=== PATIENT | male | born 1960 | race African-American/Black ===

== ENCOUNTER → 2018-04-13 11:12 | Outpatient (CLI) | payer BC, SELFPAY ==
[2018-04-13 14:55] LABS: Erythrocyte Sedimentation Rate 8 mm/hr (0-20)
[2018-04-13 14:56] LABS: Absolute Lymphocyte Count 0.98 X10^3/ul (0.83-4.51); Absolute Neutrophil Count 1.7 X10^3/uL (2.0-7.7); Basophil# 0.02 X10^3/uL; Basophil% 0.6 % (0-1); Eosinophil# 0.04 X10^3/uL; Eosinophils% 1.3 % (0-5); Hematocrit 39.7 % (40-54); Hemoglobin 13.4 g/dl (13.0-16.5); Lymphocyte # 0.98 X10^3/ul (4.0); Lymphocyte % 31.8 % (19-41); Mean Corp Hgb Conc 33.8 g/gl (32-36); Mean Corpuscular Hgb 28.7 pg (27.0-32.0); Monocyte% 9.7 % (0-10); Neutrophil # 1.74 X10^3/uL (2.7-7.7); Neutrophil % 56.6 % (47-70); Platelet Count 191 K/mm3 (150-450); RBC Distribution Width CV 13.3 % (11.6-14.6); RBC Distribution Width SD 40.9 fl (35.1-43.9); Red Blood Count 4.67 M/mm3 (4.6-6.2); White Blood Count 3.1 K/mm3 (4.4-11.0)
[2018-04-13 15:00] LABS: POSITIVE COUNT NO; POSITIVE DIFFERENTIAL NO; POSITIVE MORPHOLOGY NO
--- NOTE | 2018-04-13 15:05 | CT_ITS ---
STUDY: CT BRAIN WITHOUT CONTRAST REASON FOR EXAM: Male, 57 years old. Severe headaches. RADIATION DOSAGE (If Supplied By Facility): CTDIvol = ( 60.81 ) mGy, DLP = ( 1112.69 ) mGycm TECHNIQUE: Transaxial CT imaging of the brain was performed without administration of intravenous contrast material. Individualized dose optimization techniques were used for this CT. COMPARISON: None. FINDINGS: Normal soft tissue structures. Normal calvarium. Normal size ventricles and extra-axial spaces for the patient's age. Normal white matter tracts of the cerebral hemispheres. Normal basal ganglia and thalami. Normal brainstem. Normal cerebellum. There is no intracranial hemorrhage. There are no findings of an acute ischemic infarction. There is opacification of the left maxillary sinus as well as partial opacification of the left ethmoid sinus. There is fullness of the left nasal fossa. CT/Brain/Head without Contrast IMPRESSION: Opacification of the left maxillary sinus and partial opacification of the left ethmoid sinus. Electronically Signed: Edvin Thakur MD at 15:40 EST Tel [phone], Service support ,
[2018-04-13 15:13] LABS: ALB/GLOB Ratio 1.1 RATIO (0.9-2.4); AST(SGOT) 15 U/L (15-37); Alanine Aminotransfer ALT/SGPT 29 U/L (16-61); Alkaline Phosphatase 60 U/L (45-117); Anion Gap 10 (5-15); BUN 22 mg/dL (7-18); BUN/Creat Ratio 22.5 RATIO (10-20); CRP < 2.90 mg/L (0.0-3.0); Calcium,Total 8.8 mg/dL (8.5-10.1); Chloride 110 mmol/L (98-107); Creatinine, Serum 0.98 mg/dL (0.70-1.30); EST Glomerular Filtration Rate 84 mL/min (>60); Est Glom Filt Rate - Afr Amer 101 mL/min (>60); Globulin 3.6 g/dL (2.2-4.2); Glucose 79 mg/dL (74-106); Magnesium 2.1 mg/dL (1.6-2.6); Potassium 3.9 mmol/L (3.5-5.1); Protein, Total 7.6 g/dL (6.4-8.2); Sodium Level 143 mmol/L (136-145); Thyroid Stim Hormone (TSH) 1.17 uIU/mL (0.358-3.74)
[2018-04-15 14:20] LABS: ANTINUCLEAR ANTIBODIES DIRECT Negative (Negative)
[2018-04-15 23:53] LABS: Rapid Plasmin Reagin (RPR) NONREACTIVE (NONREACTIVE)
--- OUTSIDE RECORDS SUMMARY | 2018-07-15 20:00 | XMS RPT_ITS ---
:1960 Author Organization [facility] Care Team Providers Name Role Phone Juan Manuel Hernandez Attending Unavailable Juan Manuel Hernandez Primary Care Unavailable Juan Manuel Hernandez Referring Unavailable PROBLEMS PROBLEMS DATE TYPE CONDITION / CODE ATTENDING STATUS SOURCE 04/13/2018 Unknown R51 - Headache / Juan Manuel Hernandez Active [place] R51(ICD-10) [facility] Hospital Repository 04/13/2018 Unknown 784.0 - Headache Juan Manuel Hernandez Active [place] / 784.0(ICD-9) [facility] Repository PROCEDURES PROCEDURES No Procedure Records FoundRESULTS RESULTS BRAIN/HEAD WITHOUT Observed: 04/13/2018 Status: F Source: [place] CONTRAST 3:05 PM [facility] Imaging Services [address] [place] [address] Brain/Head without Contrast MR#: [id number] Acct: [id number] Name: NOLVIA ESCOBAR Rep #: [id number] : 1960 M 57 From: Edvin Thakur MD PCP: Juan Manuel Hernandez MD Status: REG CLI Study: Brain/Head without Contrast Date of Exam: 04/13/18 Exam# [id number] Ordering Dr: Juan Manuel Hernandez MD STUDY: CT BRAIN WITHOUT CONTRAST REASON FOR EXAM: Male, 57 years old. Severe headaches. RADIATION DOSAGE (If Supplied By Facility): CTDIvol = ( 60.81 ) mGy, DLP = ( 1112.69 ) mGycm TECHNIQUE: Transaxial CT imaging of the brain was performed without administration of intravenous contrast material. Individualized dose optimization techniques were used for this CT. COMPARISON: None. FINDINGS: Normal soft tissue structures. Normal calvarium. Normal size ventricles and extra-axial spaces for the patient's age. Normal white matter tracts of the cerebral hemispheres. Normal basal ganglia and thalami. Normal brainstem. Normal cerebellum. There is no intracranial hemorrhage. There are no findings of an acute ischemic infarction. There is opacification of the left maxillary sinus as well as partial opacification of the left ethmoid sinus. There is fullness of the left nasal fossa. CT/Brain/Head without Contrast IMPRESSION: Opacification of the left maxillary sinus and partial opacification of the left ethmoid sinus. Electronically Signed: Edvin Thakur MD at 15:40 EST Tel [phone], Service support , CC: Juan Manuel Hernandez MD Receiving Teller: Signed ERYTHROCYTE SED RATE Collected: 04/13/2018 Status: F Source: [place] 11:16 AM [facility] TYPE CODE TESTS RESULT OUT OF RANGE REFERENCE UNITS LAB L102.0000 0-20 mm/hr Normal SED RATE 8 Performed By: #### L101.9900, L100.0100, L500.4050, L501.5200, L501.9520 #### [facility] [address] [place] [address], [address] #### L3100.5475 #### [facility] (refer to report for specific site) refer to report for address and phone number CBC W/DIFF, AUTOMATED Collected: 04/13/2018 Status: F Source: [place] 11:16 AM [facility] TYPE CODE TESTS RESULT OUT OF RANGE REFERENCE UNITS LAB L100.1000 4.4-11.0 K/mm3 Low WBC 3.1 LAB L100.1200 4.6-6.2 M/mm3 Normal RBC 4.67 LAB L100.1300 13.0-16.5 g/dl Normal HGB 13.4 LAB L100.1400 40-54 % Low HCT 39.7 LAB L100.1500 80-94 fL Normal MCV 85.0 LAB L100.1600 27.0-32.0 pg Normal MCH 28.7 LAB L100.1700 32-36 g/gl Normal MCHC 33.8 LAB L100.1810 11.6-14.6 % Normal RDW CV 13.3 LAB L100.1820 35.1-43.9 fl Normal RDW SD 40.9 LAB L100.1900 150-450 K/mm3 Normal PLT 191 LAB L100.2000 6.2-12.0 fl Normal MPV 10.0 LAB L100.2100 47-70 % Normal NEUT% 56.6 LAB L100.2200 19-41 % Normal LY% 31.8 LAB L100.2300 0-10 % Normal MONO% 9.7 LAB L100.2400 0-5 % Normal EO% 1.3 LAB L100.2500 0-1 % Normal BASO% 0.6 LAB L100.2550 0.0-0.9 % Normal IM GRAN % 0.000 Result Comment: IG% - Immature Granulocytes (promyelocytes, myelocytes and metamyelocytes) > 1% indicates that a LEFT SHIFT is Present. LAB L100.2620 2.0-7.7 X10 3/uL Low Absolute Neut 1.7 LAB L100.2720 0.83-4.51 X10 3/ul Normal Absolute Lymph 0.98 Performed By: #### L101.9900, L100.0100, L500.4050, L501.5200, L501.9520 #### [facility] [address] [facility] [facility] [place], [place], [id number] #### L3100.5475 #### [facility] (refer to report for specific site) refer to report for address and phone number COMPREHENSIVE METABOLIC Collected: 04/13/2018 Status: F Source: [facility] 11:16 AM [facility] TYPE CODE TESTS RESULT OUT OF RANGE REFERENCE UNITS LAB L501.0100 74-106 mg/dL Normal GLU 79 Result Comment: Please note revised GLUCOSE reference range effective 2017. LAB L501.1000 7-18 mg/dL High BUN 22 LAB L501.1100 0.70-1.30 mg/dL Normal CREAT,SERUM 0.98 Result Comment: The validity of the calculated GFR AND GFRAA in patients over 70 years has not been determined. Clinical correlation is essential. LAB L501.1110 >60 mL/min Normal EST GFR 84 Result Comment: Non- GFR Calc LAB L501.1115 >60 mL/min Normal EST GFR - AA 101 Result Comment: GFR Calc LAB L501.1300 10-20 RATIO High BUN/CRE 22.5 LAB L501.1500 6.4-8.2 g/dL T Normal PROT 7.6 LAB L501.1800 3.2-5.0 g/dL Normal ALB 4.0 LAB L501.1950 2.2-4.2 g/dL Normal GLOB 3.6 LAB L501.2000 0.9-2.4 RATIO Normal A/G 1.1 LAB L501.2200 8.5-10.1 mg/dL CA Normal 8.8 LAB L501.4100 15-37 U/L Normal AST 15 LAB L501.4305 45-117 U/L Normal ALK P 60 LAB L501.4405 16-61 U/L Normal ALT 29 LAB L501.4600 0.20-1.00 mg/dL T Normal BILI 0.50 LAB L501.5300 136-145 mmol/L NA Normal 143 LAB L501.5600 3.5-5.1 mmol/L K Normal 3.9 LAB L501.5900 98-107 mmol/L High CL 110 LAB L501.6100 21.0-32.0 mmol/L Normal CO2 23.0 LAB L501.6200 5-15 Normal GAP 10 Performed By: #### L101.9900, L100.0100, L500.4050, L501.5200, L501.9520 #### [facility] [address] [place], [address] #### L3100.5475 #### [facility] (refer to report for specific site) refer to report for address and phone number MAGNESIUM Collected: 04/13/2018 Status: F Source: [place] 11:16 AM [facility] TYPE CODE TESTS RESULT OUT OF RANGE REFERENCE UNITS LAB L501.5200 1.6-2.6 mg/dL Normal MG 2.1 Performed By: #### L101.9900, L100.0100, L500.4050, L501.5200, L501.9520 #### [facility] [place], [address] #### L3100.5475 #### [facility] (refer to report for specific site) refer to report for address and phone number THYROID STIM HORMONE Collected: 04/13/2018 Status: F Source: [place] (TSH) 11:16 AM [facility] TYPE CODE TESTS RESULT OUT OF RANGE REFERENCE UNITS LAB L501.9520 0.358-3.74 uIU/mL Normal TSH 1.17 Performed By: #### L101.9900, L100.0100, L500.4050, L501.5200, L501.9520 #### [facility] [address] [place] [address], [address] #### L3100.5475 #### [facility] (refer to report for specific site) refer to report for address and phone number ANTINUCLEAR ANTIBODIES Collected: 04/13/2018 Status: F Source: [place] DIRECT 11:16 AM [facility] TYPE CODE TESTS RESULT OUT OF RANGE REFERENCE UNITS LAB L3100.5475 Negative Normal Negative NELDA-DIRECT Result Comment: Performed at: - [facility] [address] [id number] [employer]iller [employer] Reamer: Charles Catalan PhD, Phone: [phone] Performed By: #### L101.9900, L100.0100, L500.4050, L501.5200, L501.9520 #### [facility] [address] [place] [address], [address] #### L3100.5475 #### [facility] (refer to report for specific site) refer to report for address and phone number CRP Collected: 04/13/2018 Status: F Source: [place] 11:16 AM [facility] TYPE CODE TESTS RESULT OUT OF RANGE REFERENCE UNITS LAB L501.6710 0.0-3.0 mg/L Normal < 2.90 C-REACTIVE PROT Result Comment: C-Reactive Protein (CRP) provides useful information for the diagnosis, therapy and monitoring of inflammatory processes and associated diseases. For the evaluation of Relative Risk for Cardiovascular Disease, a High Sensitivity CRP (HSCRP) should be ordered. Performed By: #### L501.6710 #### [facility] [address] [place], [address] RAPID PLASMIN REAGIN Collected: 04/13/2018 Status: F Source: [place] (RPR) 11:16 AM [facility] TYPE CODE TESTS RESULT OUT OF REFERENCE UNITS RANGE LAB L700.5000 NONREACTIVE NONREACTIVE Normal RPR Performed By: #### L700.5000 #### [facility] [address] [place], [address] ALLERGIES ALLERGIES DATE TYPE / CODE NAME / CODE REACTION SEVERITY SOURCE 12/24/2015 Drug No Known Unknown [facility] Allergy/4160 Allergies/F00 Hospital [address](SNOMED [id number](RXNOR Repository CT) M) ENCOUNTERS ENCOUNTERS ADMIT/DISCHARGE ACCOUNT ADMITTING ENCOUNTER LOCATION SOURCE NUMBER CLASS 04/13/2018 [id number] Ambulatory [facility] ing:CT Repository PAYERS PAYERS ENCOUNTER GUARANTOR PAYER SUBSCRIBER SOURCE 04/13/2018 NOLVIA Griffin Primary NOLVIA [place] [address] Insurance:ANTHEMPolic LUZB: [place] Number: [id number] Hospital [address]38[address]Wxa: (220) [id number] Repository [phone] () leslye Date:[id number] [id number] [place] [address]DG: 04/13/2018 Secondary NOT GIVENUNK [place] Insurance:SELF PAY [facility] Number: Effective Repository Date:2018-04-13
== END ==
PROVIDERS: Family Provider Family Medicine; PCP Family Medicine; Referring Provider Family Medicine; Visit Provider Family Medicine
DX: R51 Headache (principal)
CPT/HCPCS: 36415; 70450; 80053; 83735; 84443; 85025; 85652; 86038; 86140; 86592

== ENCOUNTER → 2018-08-11 09:27 | Outpatient (CLI) | payer BC, SELFPAY ==
[2015-12-24 17:36] VITALS: BMI 26.4
[2018-08-11 10:42] LABS: Anion Gap 6 (5-15); BUN 12 mg/dL (7-18); BUN/Creat Ratio 14.2 RATIO (10-20); Calcium,Total 8.6 mg/dL (8.5-10.1); Chloride 104 mmol/L (98-107); Creatinine, Serum 0.84 mg/dL (0.70-1.30); EST Glomerular Filtration Rate 99 mL/min (>60); Est Glom Filt Rate - Afr Amer 120 mL/min (>60); Glucose 83 mg/dL (74-106); Magnesium 2.3 mg/dL (1.6-2.6); Potassium 4.1 mmol/L (3.5-5.1); Sodium Level 139 mmol/L (136-145)
== END ==
PROVIDERS: Nurse Practitioner Family; Family Provider Family Medicine; PCP Family Medicine; Referring Provider Family Medicine; Visit Provider Family Medicine
DX: M79.606 Pain in leg, unspecified (principal)
CPT/HCPCS: 36415; 80048; 83735

== ENCOUNTER → 2019-02-15 12:13 | Outpatient (CLI) | payer BC, SELFPAY ==
[2015-12-24 17:36] VITALS: BMI 26.4
[2019-02-15 15:54] LABS: Albumin, Serum 3.9 g/dL (3.2-5.0); BUN 13 mg/dL (7-18); BUN/Creat Ratio 12.3 RATIO (10-20); Calcium,Total 8.5 mg/dL (8.5-10.1); Chloride 110 mmol/L (98-107); Cholesterol 220 mg/dL (200); Creatinine, Serum 1.06 mg/dL (0.70-1.30); EST Glomerular Filtration Rate 76 mL/min (>60); Est Glom Filt Rate - Afr Amer 92 mL/min (>60); Glucose 82 mg/dL (74-106); High Density Lipoprotein 60 mg/dL; Magnesium 2.3 mg/dL (1.6-2.6); PSA,Total - Annual Screen 0.75 ng/mL (0.00-4.00); Phosphorus 2.6 mg/dL (2.5-4.9); Potassium 3.8 mmol/L (3.5-5.1); Sodium Level 141 mmol/L (136-145); Triglycerides 220 mg/dL; Very Low Density Lipoprotein 44 mg/dL (5-40)
[2019-02-15 17:18] LABS: HIV - WCH Non-Reactive (Nonreactive)
[2019-02-17 20:07] LABS: QNTFERON TB Mitogen Value > 10.00 IU/mL (.); QNTFERON TB Nil Value 0.02 IU/mL (.); QNTFERON TB1+ Ag Value 0.02 IU/mL (.); QNTFERON TB2+ Ag Value 0.02 IU/mL (.)
[2019-02-17 21:17] LABS: QNTIFERON TB Positive Criteria Negative (Negative)
== END ==
PROVIDERS: Family Provider Family Medicine; PCP Family Medicine; Referring Provider Family Medicine; Visit Provider Family Medicine
DX: Z00.00 Encounter for general adult medical examination without abnormal findings (principal); R61 Generalized hyperhidrosis; R25.2 Cramp and spasm
CPT/HCPCS: 36415; 80061; 80069; 83735; 84153; 86480; 86703; G0103

== ENCOUNTER → 2019-07-07 14:50 | Outpatient (CLI) | payer BC, SELFPAY ==
[2015-12-24 17:36] VITALS: BMI 26.4
[2019-07-07 15:36] LABS: Anion Gap 4 (5-15); BUN 12 mg/dL (7-18); BUN/Creat Ratio 13.4 RATIO (10-20); Chloride 109 mmol/L (98-107); Creatinine, Serum 0.89 mg/dL (0.70-1.30); EST Glomerular Filtration Rate 92 mL/min (>60); Est Glom Filt Rate - Afr Amer 112 mL/min (>60); Glucose 107 mg/dL (74-106); Sodium Level 142 mmol/L (136-145)
[2019-07-07 15:50] LABS: D-Dimer Quantitative (DVT/PE) 0.78 FEU/ug/m (0.27-0.49)
== END ==
PROVIDERS: PCP Family Medicine; Referring Provider Family Medicine; Visit Provider Family Medicine
DX: R25.2 Cramp and spasm (principal); Z86.711 Personal history of pulmonary embolism
CPT/HCPCS: 36415; 80048; 85379

== ENCOUNTER → 2019-07-08 08:52 | Outpatient (CLI) | payer BC, SELFPAY ==
--- NOTE | 2019-07-08 09:07 | VDLE_ITS ---
Reason For Study: Hx of PE, Elevated D-dimer, Leg Pain RIGHT LEFT GSV is normal. GSV is normal. CFV is compressible, spontaneous, phasic, CFV is compressible, spontaneous, phasic, competent and demonstrates normal competent, and demonstrates normal augmentation. augmentation. FV is compressible, spontaneous, phasic, FV is compressible, spontaneous, phasic, competent and demonstrates normal competent and demonstrates normal augmentation. augmentation. POP V is compressible, spontaneous, phasic, POP V is compressible, spontaneous, phasic, competent and demonstrates normal competent and demonstrates normal augmentation. augmentation. T/P Trunk is compressible. T/P Trunk is compressible. PTV is compressible. PTV is compressible. RT PerV is compressible. LT PerV is compressible. Procedure Exam performed in department. A preliminary report was called and/or faxed to Dr. Hernandez. Interpretation Summary Deep veins of the lower extremities are bilaterally patent and compressible segmentally. There is no evidence of deep vein thrombosis on either side. Valvular competence appears intact within the proximal deep venous systems bilaterally. The great saphenous veins appear bilaterally patent and compressible segmentally. Ordering Physician: Juan Manuel Hernandez Referring Physician: Juan Manuel Hernandez Performed By: Leah Baer, ZULEIKA, RVT
== END ==
LOC: CVS 08:53
PROVIDERS: PCP Family Medicine; Referring Provider Family Medicine; Visit Provider Family Medicine
DX: R79.89 Other specified abnormal findings of blood chemistry (principal); Z86.711 Personal history of pulmonary embolism; M79.604 Pain in right leg; M79.605 Pain in left leg
CPT/HCPCS: 93970

== ENCOUNTER → 2019-11-18 11:01 | Outpatient (CLI) | payer BC, SELFPAY ==
[2019-11-18 10:47] VITALS: BMI 26.1
--- NOTE | 2019-11-18 11:01 | RAD_ITS ---
STUDY: X-RAY - RIGHT SHOULDER REASON FOR EXAM: Male, 59 years old. OLD INJURY, PAIN GETTING WORSE RECENTLY TECHNIQUE: 3 view(s) of the shoulder. COMPARISON: None. FINDINGS: Normal glenohumeral articulation. Normal acromioclavicular joint. Normal acromion. Normal humeral head and visualized proximal humerus. The soft tissue structures are unremarkable. Normal visualized pulmonary apex. RAD/Shoulder min 2 Views IMPRESSION: Normal x-ray examination of the shoulder. Electronically Signed: Panchito Diaz MD at 12:10 EDT , Service support ,
== END ==
LOC: HPRAD 11:01
PROVIDERS: PCP Family Medicine; Referring Provider Orthopaedic Surgery; Visit Provider Orthopaedic Surgery
DX: M25.511 Pain in right shoulder (principal)
CPT/HCPCS: 73030

== ENCOUNTER → 2019-12-02 11:17 | Outpatient (CLI) | payer BC, SELFPAY ==
[2019-11-18 11:17] VITALS: BMI 26.4
--- NOTE | 2019-12-02 11:43 | MRI_ITS ---
STUDY: MR RIGHT SHOULDER ARTHROGRAPHY REASON FOR EXAM: Right shoulder clicking and decreased range of motion for 2 years, rotator cuff repair in 1994 or 1995, evaluate for SLAP lesion. TECHNIQUE: Standardized fat and water weighted pulse sequences were obtained in all 3 orthogonal planes after intra-articular instillation of 0.8 mL of dilute Dotarem. COMPARISON: Radiographs 11/18/2019. FINDINGS: There is mild supraspinatus and infraspinatus tendinosis (T2 sagittal image 7) without intravasation of contrast to indicate tendon tear. There is mild iatrogenic contrast in the subscapularis tendon. Normal teres minor tendon. Normal supraspinatus muscle. Normal infraspinatus muscle. Normal subscapularis muscle. Normal teres minor muscle. Normal glenohumeral articulation. There are small cysts in the greater tuberosity. There is mild fraying of the superior labrum (T1 coronal image 13) without discrete labral tear. There is mild tendinosis of the intracapsular long biceps tendon (T2 sagittal images 12, 13). Normal capsulo- ligamentous complex. Normal rotator interval. There is acromioclavicular arthrosis without substantial undersurface osteophytes (T2 sagittal image 12). There is a Type II morphology (curved), with a neutral orientation. There is no subacromial-subdeltoid bursal fluid. Normal visualized coracohumeral and coracoacromial ligaments. There is mild iatrogenic edema in the proximal anterior deltoid muscle. Normal trapezius muscle. MRI/Upper Ext Jt W/Contrast IMPRESSION: Mild supraspinatus and infraspinatus tendinosis without demonstrated rotator cuff tear. Mild tendinosis of the long biceps tendon. Mild fraying of the superior labrum without discrete superior labral tear. Acromioclavicular arthrosis. Electronically Signed: Roverto Perry MD at 13:38 EDT Tel , Service support ,
--- NOTE | 2019-12-02 11:45 | RAD_ITS ---
CLINICAL HISTORY: Male, 59 years old. Right shoulder pain. Prior surgery. PROCEDURE: ARTHROGRAM - RIGHT SHOULDER CONSENT: The procedure as well as the benefits and possible complications including bleeding and infection were explained to the patient. Informed consent was obtained. FLUOROSCOPY TIME (if supplied): (41 seconds) minutes/seconds Injection Information: 10 cc of dilute MRI contrast Number of images obtained: 4 TECHNIQUE: (All elements of maximal sterile barrier technique followed, including US elements as applicable) The overlying skin was prepped and draped in the usual sterile fashion. Following local anesthetic application and under direct fluoroscopic guidance, a 22-gauge spinal needle was placed into the shoulder joint. 2 cc of ISOVUE-300 was injected for confirmation. From this, 10 cc of dilute MRI contrast was injected. The patient tolerated the procedure well. RAD/Arthrogram Shoulder w/ MRI IMPRESSION: Successful right shoulder arthrogram for MRI examination. The patient tolerated the procedure well. Electronically Signed: Edvin Thakur, at 13:18 EDT , Service support ,
== END ==
LOC: RAD 11:18
PROVIDERS: PCP Family Medicine; Referring Provider Orthopaedic Surgery; Visit Provider Orthopaedic Surgery
DX: S43.431A Superior glenoid labrum lesion of right shoulder, initial encounter (principal)
CPT/HCPCS: 23350; 73222; 77002; A9575; Q9967

== ENCOUNTER → 2020-04-25 09:23 | Outpatient (CLI) | payer BC, SELFPAY ==
[2019-12-14 07:56] VITALS: BMI 26.4
[2020-04-25 10:59] LABS: Absolute Lymphocyte Count 0.81 X10^3/uL (0.83-4.51); Absolute Neutrophil Count 2.2 X10^3/uL (2.0-7.7); Basophil# 0.01 X10^3/uL; Basophil% 0.3 % (0-1); Eosinophil# 0.07 X10^3/uL; Eosinophils% 1.9 % (0-5); Hematocrit 38.4 % (40-54); Hemoglobin 13.2 g/dL (13.0-16.5); Lymphocyte # 0.81 X10^3/ul (4.0); Lymphocyte % 22.4 % (19-41); Mean Corp Hgb Conc 34.4 g/dL (32-36); Mean Corpuscular Hgb 31.1 pg (27.0-32.0); Mean Corpuscular Volume 90.6 fL (80-94); Mean Platelet Vol. 10.2 fl (6.2-12.0); Monocyte# 0.48 X10^3/uL; Monocyte% 13.3 % (0-10); NRBC Flagged by Analyzer 0 % (0-5); Neutrophil # 2.23 X10^3/uL (2.7-7.7); Neutrophil % 61.8 % (47-70); Platelet Count 180 K/mm3 (150-450); RBC Distribution Width CV 13.3 % (11.6-14.6); RBC Distribution Width SD 43.3 fl (35.1-43.9); Red Blood Count 4.24 M/mm3 (4.6-6.2); White Blood Count 3.6 K/mm3 (4.4-11.0)
[2020-04-25 11:09] LABS: ALB/GLOB Ratio 1.1 RATIO (0.9-2.4); AST(SGOT) 16 U/L (15-37); Alanine Aminotransfer ALT/SGPT 50 U/L (16-61); Albumin, Serum 3.9 g/dL (3.2-5.0); Alkaline Phosphatase 73 U/L (45-117); Anion Gap 5 (5-15); BUN 17 mg/dL (7-18); BUN/Creat Ratio 18.8 RATIO (10-20); Calcium,Total 8.9 mg/dL (8.5-10.1); Chloride 108 mmol/L (98-107); Cholesterol 271 mg/dL (200); EST Glomerular Filtration Rate 91 mL/min (>60); Est Glom Filt Rate - Afr Amer 110 mL/min (>60); Globulin 3.5 g/dL (2.2-4.2); Glucose 77 mg/dL (74-106); High Density Lipoprotein 60 mg/dL; Potassium 3.8 mmol/L (3.5-5.1); Protein, Total 7.4 g/dL (6.4-8.2); Sodium Level 140 mmol/L (136-145); Thyroid Stim Hormone (TSH) 1.36 uIU/mL (0.358-3.74)
[2020-04-30 08:06] LABS: LDL, Direct 120295 191 mg/dL (0-99); Testosterone, % Free 3.19 % (1.50-4.20); Testosterone, Free 15.02 ng/dL (5.00-21.00)
[2020-04-30 12:56] LABS: Testosterone, Total 471 ng/dL (264-916)
== END ==
PROVIDERS: PCP Family Medicine; Visit Provider Family Medicine
DX: N52.9 Male erectile dysfunction, unspecified (principal); G44.019 Episodic cluster headache, not intractable; Z53.20 Procedure and treatment not carried out because of patient's decision for unspecified reasons
CPT/HCPCS: 36415; 80053; 82465; 83718; 83721; 84402; 84403; 84443; 85025

== ENCOUNTER 2020-11-01 20:48 | Emergency (ER) | payer BC, SELFPAY ==
[2019-12-14 07:56] VITALS: BMI 26.4
[2020-11-01 20:48] VITALS: BP 123/77; PULSE 73; RESP 16; TEMP 36.4; O2SAT 100; BMI 26.4
--- NOTE | 2020-11-01 21:59 | RAD_ITS ---
STUDY: X-RAY - LEFT HAND REASON FOR EXAM: Male, 60 years old. pain at base of thumb/1st metacarpal after smashing thumb in door tonight TECHNIQUE: 3 view(s) of the hand. COMPARISON: None. FINDINGS: Mild demineralization of the osseous structures. A small cortical spur is present at the base of the distal phalanx of the thumb. No visualized acute fractures. Radiocarpal articulation. Normal distal radioulnar joint. Normal visualized carpal bones. Normal carpal articulations Normal carpometacarpal articulation of the thumb. Normal second through fifth carpometacarpal joints. Normal metacarpi. Normal metacarpophalangeal joint of the thumb. Normal interphalangeal joint of the thumb. Normal proximal and distal phalanges of the thumb. Normal metacarpophalangeal joints of the second through fifth fingers. Normal proximal and distal interphalangeal joints of the second through fifth fingers. Normal phalanges of the second through fifth fingers. The soft tissue structures are unremarkable. RAD/Hand Min 3 Views IMPRESSION: 1. Mild demineralization of the osseous structures. A small cortical spur is present at the base of the distal phalanx of the thumb. No visualized acute fractures. Electronically Signed: Enrique Baird MD at 22:59 EDT , Service support ,
--- NOTE | 2020-11-01 23:53 | EDS_ITS ---
HPI History of Present Illness HPI Narrative: Patient presents with injury to his left thumb that occurred earlier today. Patient states he got closed in a door. Patient describes pain as throbbing. Patient states the pain is worse with movement. Patient mitts to some tingling in the tip of his thumb. Patient states this is improving. Patient denies any radiation of the pain. Patient denies any other injuries. Chief Complaint: Upper Extremity Injury Informant: patient Occured/Mechanism Mechanism/Context: Yes blunt trauma Onset/Context/Timing Onset: Today Context: Sudden Onset Timing: Continuous Quality of Pain: Throbbing Worsened by: Movement Relieved by: Nothing Associated Symptoms Associated Symptoms: Positive for Parasthesia; Negative for Weakness and Loss of Funtion [facility] Medical History (Updated 11/01/20 @ 23:[address] 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 Home Medications rivaroxaban 20 mg PO DAILY #30 tab 11/15/15 [Rx Last Taken 12/24/15] celecoxib 200 mg capsule 200 mg PO PRN cap 11/18/19 [History Last Taken Unknown] fluticasone propionate 50 mcg/actuation nasal spray,suspension INTRANASAL 11/18/19 [History Last Taken Unknown] indomethacin 25 mg capsule 25 mg PO Q8H cap 11/18/19 [History Last Taken Unknown] magnesium oxide 400 mg (241.3 mg magnesium) tablet ea PO 11/18/19 [History Last Taken Unknown] nifedipine 30 mg tablet,extended release PO 11/18/19 [History Last Taken Unknown] nortriptyline 25 mg capsule ea PO 11/18/19 [History Last Taken Unknown] promethazine 12.5 mg tablet PO 11/18/19 [History Last Taken Unknown] tizanidine 4 mg tablet ea PO 11/18/19 [History Last Taken Unknown] Allergy/AdvReac Type Severity Reaction Status Date / Time No Known Allergies Allergy Verified 11/01/20 20:50 Family History Mother Diabetes Surgical History History of rotator cuff surgery Social History Smoking Status: Never smoker ROS ROS ED Constitutional Constitutional ED: Denies chills or fever(s) Eyes Eyes: Denies blurry vision or change in vision ENT ENT ED: Denies rhinorrhea or sore throat Cardiovascular Cardiovascular: Denies chest pain or palpitations Respiratory/Chest Respiratory/Chest: Denies cough or dyspnea Gastrointestinal Gastrointestinal: Denies nausea or vomiting Genitourinary Genitourinary ED: Denies dysuria or hematuria Musculoskeletal Musculoskeletal: Denies back pain or neck pain Integumentary Denies abscess or rash Neurologic Neurologic: Denies headache(s) or weakness Allergic/Immunologic Allergic/Immunologic ED: Denies mouth swelling or urticaria EXAM Physical Exam Const Vital Signs: 11/01/20 20:48 Temperature 97.5 F L Temperature Source Temporal Pulse Rate 73 Respiratory Rate 16 Blood Pressure 123/77 H Blood Pressure Mean 92 Pulse Ox 100 Oxygen Delivery Method Room Air Positive well nourished and well developed General Appearance ED: well developed HEENT Reports moist mucous membranes Neck full ROM Extremity Left Upper Extremity: hand and digits inspection (There is some mild edema. There is no ecchymosis noted. There is no obvious deformity.), palpation (There is tenderness to palpation over the distal and proximal phalanges of the left thumb.), ROM (Range of motion was limited and flexion of the IP joint and MP joint of the left thumb secondary to pain.), neurovascular exam (Sensation was intact to light touch in all digits. Capillary refill was less than 2 seconds in all digits.) and tendon exam (Strength is 5/5 in flexion and extension of the IP and MP joints of the left thumb.) Neuro oriented x3, CN's II-XII intact bilaterally, moves all extremities, no focal motor deficits and no sensory deficits noted Sensorium / Orientation: alert Psych mental status grossly normal MDM MDM MDM Narrative Medical decision making narrative: X-rays of the left hand were obtained. There are 3 views. On my interpretation, there is no acute fracture. There is no dislocation. There is no soft tissue swelling. Radiologist also interpreted the x-rays and agrees. Patient was advised of the findings. Patient was instructed to ice and elevate the left hand. Patient was instructed to follow- up with his primary care physician in 5 to 7 days. Patient understood and was agreeable with the plan. All questions were answered. Radiography Diagnostic Testing: Radiology Impression Hand X-Ray 11/01/20 21:59 IMPRESSION: 1. Mild demineralization of the osseous structures. A small cortical spur is present at the base of the distal phalanx of the thumb. No visualized acute fractures. Electronically Signed: Enrique Baird MD at 22:59 EDT , Service support , Discharge Plan Triage Chief Complaint: Upper Extremity Injury ED Provider: Juan Manuel Rodriguez Dx/Rx/DC Orders Clinical Impression: Contusion of left thumb Instructions: ED Finger Contusion Prescriptions: No Action indomethacin 25 mg capsule 25 mg PO Q8H RF: 0 tizanidine 4 mg tablet PO RF: 0 magnesium oxide 400 mg (241.3 mg magnesium) tablet PO RF: 0 fluticasone propionate 50 mcg/actuation spray,suspension INTRANASAL RF: 0 nortriptyline 25 mg capsule PO RF: 0 nifedipine 30 mg tablet extended release PO RF: 0 promethazine 12.5 mg tablet PO RF: 0 celecoxib 200 mg capsule 200 mg PO PRNRF: 0 rivaroxaban 20 MG tablet 20 mg PO DAILY Qty: 30 RF: 2 Primary Care Provider: Juan Manuel Hernandez Referrals: Juan Manuel Hernandez MD [Primary Care Provider] - 3-5 Days Disposition Disposition: Home, Self Care
[2020-11-02 00:01] VITALS: RESP 16
== END 2020-11-02 00:01 | disposition home or self-care (01) ==
PROVIDERS: Emergency Provider Emergency Medicine; PCP Family Medicine
DX: S60.012A Contusion of left thumb without damage to nail, initial encounter (principal); X58.XXXA Exposure to other specified factors, initial encounter
CPT/HCPCS: 73130; 99282

== ENCOUNTER → 2021-01-31 16:47 | Outpatient (CLI) | payer BC, SELFPAY ==
[2021-01-31 18:04] LABS: Absolute Lymphocyte Count 0.74 X10^3/uL (0.83-4.51); Absolute Neutrophil Count 3.1 X10^3/uL (2.0-7.7); Basophil# 0.02 X10^3/uL; Basophil% 0.5 % (0-1); Eosinophil# 0.08 X10^3/uL; Eosinophils% 1.8 % (0-5); Hematocrit 40.2 % (40-54); Lymphocyte # 0.74 X10^3/ul (0.83-4.51); Lymphocyte % 16.8 % (19-41); Mean Corp Hgb Conc 32.3 g/dL (32-36); Mean Corpuscular Hgb 28.3 pg (27.0-32.0); Mean Corpuscular Volume 87.6 fL (80-94); Mean Platelet Vol. 9.9 fl (6.2-12.0); Monocyte# 0.49 X10^3/uL; Monocyte% 11.1 % (0-10); NRBC Flagged by Analyzer 0 % (0-5); Neutrophil # 3.06 X10^3/uL (2.7-7.7); Neutrophil % 69.6 % (47-70); Platelet Count 247 K/mm3 (150-450); RBC Distribution Width SD 41.3 fl (35.1-43.9); Red Blood Count 4.59 M/mm3 (4.6-6.2); White Blood Count 4.4 K/mm3 (4.4-11.0)
[2021-01-31 18:26] LABS: Hemoglobin A1c 5.8 % (3.8-5.6)
[2021-01-31 18:38] LABS: ALB/GLOB Ratio 1.1 RATIO (0.9-2.4); AST(SGOT) 14 U/L (15-37); Alanine Aminotransfer ALT/SGPT 28 U/L (16-61); Alkaline Phosphatase 89 U/L (45-117); Anion Gap 4 (5-15); BUN 12 mg/dL (7-18); BUN/Creat Ratio 14.2 RATIO (10-20); Calcium,Total 9.4 mg/dL (8.5-10.1); Chloride 107 mmol/L (98-107); Creatinine, Serum 0.84 mg/dL (0.70-1.30); EST Glomerular Filtration Rate 98 mL/min (>60); Est Glom Filt Rate - Afr Amer 119 mL/min (>60); Globulin 3.7 g/dL (2.2-4.2); Glucose 92 mg/dL (74-106); Potassium 4.8 mmol/L (3.5-5.1); Protein, Total 7.7 g/dL (6.4-8.2); Sodium Level 140 mmol/L (136-145)
== END ==
PROVIDERS: PCP Family Medicine; Referring Provider Family Medicine; Visit Provider Family Medicine
DX: R25.2 Cramp and spasm (principal); G44.019 Episodic cluster headache, not intractable
CPT/HCPCS: 36415; 80053; 83036; 85025

== ENCOUNTER 2021-07-16 07:56 | Outpatient (CLI) | payer BC, SELFPAY ==
--- NOTE | 2021-07-16 08:00 | ECHOD_ITS ---
Reason For Study: DIZZINESS Procedure This was a 2D Doppler, Color Flow transthoracic echocardiogram. Exam performed in department. Left Ventricle Normal LV size. Left ventricular systolic function is normal. The estimated ejection fraction is 55 %. No evidence for diastolic dysfunction. No regional wall motion abnormalities noted. Right Ventricle Normal RV size. Normal systolic function. Atria Normal left atrium. Normal right atrium. No doppler evidence for ASD. Mitral Valve There is no mitral annular calcification. Equivocal mitral valve prolapse. Trivial mitral valve insufficiency. Tricuspid Valve Normal tricuspid valve. Trivial tricuspid valve insufficiency. Right ventricular systolic pressure estimated to be 29 mmHg. Aortic Valve Trisinus/trileaflet aortic valve. Normal aortic valve. Pulmonic Valve The pulmonic valve is not well visualized. Trivial pulmonic valve insufficiency. Great Vessels Normal sized aortic root. Pericardium/Pleural No pericardial effusion. MMode/2D Measurements & Calculations LVIDd: 4.7 cm IVSd: 0.83 cm Ao root diam: 3.3 cm LVIDs: 3.4 cm LVPWd: 0.89 cm RVDd: 4.0 cm FS: 27.5 % LAV(MOD-bp): 62.6 ml LVAd ap4: 42.0 cm2 LVAd ap2: 40.0 cm2 LAV(MOD-bp) Indexed: 29.7 ml/m2 LVLd ap4: 10.1 cm LVLd ap2: 9.7 cm LAV(MOD-sp2): 59.1 ml EDV(MOD-sp4): 145.2 ml EDV(MOD-sp2): 136.7 ml LAV(MOD-sp4): 54.4 ml EDV(sp4-el): 148.3 ml EDV(sp2-el): 139.8 ml LVAs ap4: 25.5 cm2 LVAs ap2: 23.6 cm2 LVLs ap4: 8.2 cm LVLs ap2: 7.7 cm ESV(MOD-sp4): 68.0 ml ESV(MOD-sp2): 61.5 ml ESV(sp4-el): 67.7 ml ESV(sp2-el): 61.1 ml EF(MOD-sp4): 53.2 % EF(MOD-sp2): 55.0 % EF(sp4-el): 54.3 % SV(MOD-sp4): 77.2 ml SV(MOD-sp2): 75.2 ml SV(sp4-el): 80.6 ml LA dimension(2D): 3.6 cm LA A4 area: 19.4 cm2 RA A4 area: 14.2 cm2 Time Measurements MV dec time: 0.21 sec Doppler Measurements & Calculations MV E max rene: 71.5 cm/sec Lat Peak E' Rene: 14.4 cm/sec Med Peak E' Rene: 9.9 cm/sec MV A max rene: 73.5 cm/sec E/E' lat: 5.0 E/E' med: 7.2 MV E/A: 0.97 Ao V2 max: 140.0 cm/sec LV V1 max: 101.2 cm/sec PA V2 max: 133.8 cm/sec Ao max P.8 mmHg LV V1 max P.1 mmHg TR max rene: 254.0 cm/sec TR max P.8 mmHg ECHO/Echo Complete Interpretation Summary Left ventricular systolic function is normal. The estimated ejection fraction is 55 %. Equivocal mitral valve prolapse. Trivial mitral valve insufficiency. Trivial tricuspid valve insufficiency. Trivial pulmonic valve insufficiency. Right ventricular systolic pressure estimated to be 29 mmHg. No evidence for diastolic dysfunction. Ordering Physician: Juan Manuel Hernandez Referring Physician: Juan Manuel Hernandez Performed By: Chantale Ornelas RDCS
== END 2021-07-16 23:59 | disposition home or self-care (01) ==
PROVIDERS: PCP Family Medicine; Referring Provider Family Medicine; Visit Provider Family Medicine
DX: R42 Dizziness and giddiness (principal); I51.7 Cardiomegaly
CPT/HCPCS: 93306

== ENCOUNTER 2021-08-21 21:23 | Emergency (ER) | payer BC, SELFPAY ==
[2021-08-21 21:24] VITALS: BP 118/83; PULSE 87; RESP 15; TEMP 36.6; O2SAT 97; BMI 25.9
[2021-08-21] MEDS: 0.9% Normal Saline 1,000 ML 999 ML IV (22:29)
--- NOTE | 2021-08-21 22:34 | EX.ED.DYSGE1 ---
HPI History of Present Illness Chief Complaint: Numb/Ting Narrative Narrative: Patient is a 60-year-old male who is right-hand dominant. He states that roughly 1 to 2 hours ago he noticed that if he is flexing his right hand into a fist like motion will become spasmy and hard to extend his fingers. He states he feels like this irritation is radiating from the hand up into the mid forearm. He denies any true numbness tingling or weakness. He denies any recent trauma. He denies any recent nausea vomiting or diarrhea which could have led to dehydration. He states that this is abnormal for him and secondary to the persistent spasm presents for evaluation. [facility] Medical History (Updated 08/21/21 @ 23:[address] 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 Home Medications celecoxib 200 mg capsule 200 mg PO PRN cap 11/18/19 [History Last Taken Unknown] fluticasone propionate 50 mcg/actuation nasal spray,suspension INTRANASAL 11/18/19 [History Last Taken Unknown] magnesium oxide 400 mg (241.3 mg magnesium) tablet ea PO 11/18/19 [History Last Taken Unknown] nifedipine 30 mg tablet,extended release PO 11/18/19 [History Last Taken Unknown] nortriptyline 25 mg capsule 25 mg PO .prn cap 11/21/20 [History Last Taken Unknown] tizanidine 4 mg tablet 4 mg PO .prn tab 11/21/20 [History Last Taken Unknown] methocarbamol 500 mg PO 4X/DAY PRN PRN #40 tab 08/21/21 [Rx Last Taken Unknown] Allergy/AdvReac Type Severity Reaction Status Date / Time No Known Allergies Allergy Verified 08/21/21 21:27 Family History Mother Diabetes Surgical History History of rotator cuff surgery Social History Smoking Status: Never smoker ROS ROS ED Constitutional Constitutional ED: Denies chills or fever(s) ENT ENT ED: Denies sore throat Cardiovascular Cardiovascular: Denies chest pain Respiratory/Chest Respiratory/Chest: Denies cough or dyspnea Gastrointestinal Gastrointestinal: Denies abdominal pain, diarrhea, nausea or vomiting Genitourinary Genitourinary ED: Denies dysuria Musculoskeletal Musculoskeletal: Reports other Details: Positive right hand pain ; Denies back pain or neck pain Integumentary Denies rash Neurologic Neurologic: Reports paresthesias; Denies headache(s) Hematologic/Lymphatic Hematologic/Lymphatic: Denies easy bleeding or easy bruising EXAM Physical Exam Const Vital Signs: 08/21/21 21:24 Temperature 97.9 F Temperature Source Temporal Pulse Rate 87 Respiratory Rate 15 Blood Pressure 118/83 H Blood Pressure Mean 94 Pulse Ox 97 Oxygen Delivery Method Room Air Positive well nourished and well developed General Appearance ED: well developed Eyes PERRL and EOMs intact bilaterally Neck supple Resp normal respiratory effort and clear to auscultation bilaterally Cardio regular rate and regular rhythm Extremity Extremity Narrative: Right upper extremity is neurovascularly intact; AIN/PIN are intact and normal. There is no obvious bony deformity or joint effusion. Negative Tinel's sign but positive Phalen's. No obvious carpopedal spasm noted. Negative chopstick sign. Neuro oriented x3 and CN's II-XII intact bilaterally Neuro Narrative: Cranial nerves II through XII are grossly intact no focal neurologic deficit NIH stroke scale score 0 Sensorium / Orientation: alert Psych mental status grossly normal Skin no rashes or lesions noted MDM MDM MDM Narrative Medical decision making narrative: Patient presented to the ER with stable vitals and a nonfocal neuro exam. He was having intermittent spasms of his right hand. He had no focal neurologic deficit to indicate this is secondary to a CVA so I felt no need for stroke work-up. I do have concern this was due to electrolyte abnormality and therefore patient had basic blood work obtained. Blood work revealed no clinically significant findings. Patient was given 1 L of fluid and Norflex and on reevaluation did report improvement of symptoms. This correlates with mild dehydration and overuse being the cause of his symptoms. Therefore this time as he does not have acute kidney injury or signs of severe electrolyte derangement he can be given symptomatic medication and discharged home. Lab Data Attestation: I reviewed the patient's lab results. Labs: Laboratory Results - last 24 hr 08/21/21 08/21/21 22:30 22:30 WBC 3.9 L RBC 4.29 L Hgb 12.8 L Hct 37.2 L MCV 86.7 MCH 29.8 MCHC 34.4 RDW Std Deviation 42.5 RDW Coeff of Criselda 13.5 Plt Count 216 MPV 9.8 Immature Gran % (Auto) 0.000 Neut % (Auto) 62.3 Lymph % (Auto) 21.8 Beaver % (Auto) 13.0 H Eos % (Auto) 2.1 Baso % (Auto) 0.8 Absolute Neuts (auto) 2.4 Absolute Lymphs (auto) 0.84 Nucleated RBC % 0 Sodium 140 Potassium 3.9 Chloride 107 Carbon Dioxide 28.0 Anion Gap 5 BUN 15 Creatinine 0.89 Estim Creat Clear Calc 95.67 Est GFR (MDRD) Af Amer 111 Est GFR (MDRD) Non-Af 92 BUN/Creatinine Ratio 16.8 Glucose 83 Calcium 9.0 Magnesium 1.9 Discharge Plan Triage Chief Complaint: Numb/Ting ED Provider: Forest Sanders Dx/Rx/DC Orders Clinical Impression: Spasms of the hands or feet Instructions: ED Muscle Spasm Prescriptions: New methocarbamol 500 mg tablet 500 mg PO 4X/DAY PRN PRN (Reason: Muscle pain/spasm) Qty: 40 RF: 0 No Action magnesium oxide 400 mg (241.3 mg magnesium) tablet PO RF: 0 fluticasone propionate 50 mcg/actuation spray,suspension INTRANASAL RF: 0 nifedipine 30 mg tablet extended release PO RF: 0 celecoxib 200 mg capsule 200 mg PO PRNRF: 0 tizanidine 4 mg tablet 4 mg PO .prn RF: 0 nortriptyline 25 mg capsule 25 mg PO .prn RF: 0 Stand Alone Forms: ED Work / School Excuse Primary Care Provider: Juan Manuel Hernandez Referrals: Juan Manuel Hernandez MD [Primary Care Provider] - Activity Restrictions/Additional Instructions: Please keep yourself hydrated as I feel your symptoms today are related to mild dehydration and overuse from your dominant hand. Take the muscle relaxers as directed and return to the ER should you have any further concerns Disposition Disposition: Home, Self Care
[2021-08-21] MEDS: Orphenadrine 60 MG/2 ML Ampul IV (22:57)
[2021-08-21 23:02] LABS: Absolute Lymphocyte Count 0.84 X10^3/uL (0.83-4.51); Absolute Neutrophil Count 2.4 X10^3/uL (2.0-7.7); Anion Gap 5 (5-15); BUN 15 mg/dL (7-18); BUN/Creat Ratio 16.8 RATIO (10-20); Basophil# 0.03 X10^3/uL; Basophil% 0.8 % (0-1); Chloride 107 mmol/L (98-107); Creatinine, Serum 0.89 mg/dL (0.70-1.30); EST Glomerular Filtration Rate 92 mL/min (>60); Eosinophil# 0.08 X10^3/uL; Eosinophils% 2.1 % (0-5); Est Glom Filt Rate - Afr Amer 111 mL/min (>60); Estimated Creatinine Clearance 95.67 ml/min; Glucose 83 mg/dL (74-106); Hematocrit 37.2 % (40-54); Hemoglobin 12.8 g/dL (13.0-16.5); Lymphocyte # 0.84 X10^3/ul (0.83-4.51); Lymphocyte % 21.8 % (19-41); Magnesium 1.9 mg/dL (1.6-2.6); Mean Corp Hgb Conc 34.4 g/dL (32-36); Mean Corpuscular Hgb 29.8 pg (27.0-32.0); Mean Corpuscular Volume 86.7 fL (80-94); Mean Platelet Vol. 9.8 fl (6.2-12.0); NRBC Flagged by Analyzer 0 % (0-5); Neutrophil # 2.41 X10^3/uL (2.7-7.7); Neutrophil % 62.3 % (47-70); Platelet Count 216 K/mm3 (150-450); Potassium 3.9 mmol/L (3.5-5.1); RBC Distribution Width CV 13.5 % (11.6-14.6); RBC Distribution Width SD 42.5 fl (35.1-43.9); Red Blood Count 4.29 M/mm3 (4.6-6.2); Sodium Level 140 mmol/L (136-145); White Blood Count 3.9 K/mm3 (4.4-11.0)
== END 2021-08-21 23:42 | disposition home or self-care (01) ==
PROVIDERS: Emergency Provider Emergency Medicine; PCP Family Medicine; Visit Provider Emergency Medicine
DX: R25.2 Cramp and spasm (principal); R20.0 Anesthesia of skin
CPT/HCPCS: 80048; 82330; 83735; 85025; 99282; J7030; A4216

== ENCOUNTER → 2022-02-18 | Outpatient (CLI) | payer BC, SELFPAY ==
[2022-02-18 10:34] LABS: CPK Total, Creatine Kinase 176 U/L (39-308); CRP < 2.90 mg/L (0.0-3.0)
[2022-02-18 11:12] LABS: Hepatitis C Antibody Non-Reactive (Nonreactive); Syphilis Antibodies Non-reactive
[2022-02-19 18:19] LABS: ANTINUCLEAR ANTIBODIES DIRECT Negative (Negative)
[2022-02-22 12:07] LABS: PROEL- A/G Ratio 1.6 (0.7-1.7); PROEL- Alpha-1 Globulin 0.2 g/dL (0.0-0.4); PROEL- Alpha-2 Globulin 0.7 g/dL (0.4-1.0); PROEL- Gamma Globulin 0.6 g/dL (0.4-1.8); PROEL- Globulin, Total 2.5 g/dL (2.2-3.9); PROEL- TOTAL PROTEIN 6.5 g/dL (6.0-8.5); QNTFERON TB Mitogen Value 7.46 IU/mL (.); QNTFERON TB Nil Value 0.09 IU/mL (.); QNTFERON TB1+ Ag Value 0.08 IU/mL (.); QNTFERON TB2+ Ag Value 0.12 IU/mL (.)
[2022-02-22 12:20] LABS: Aldolase 4.2 U/L (3.3-10.3); QNTIFERON TB Positive Criteria Negative (Negative)
== END | disposition home or self-care (01) ==
LOC: MFPLAB 08:44
PROVIDERS: PCP Family Medicine; Referring Provider Family Medicine; Visit Provider Family Medicine
DX: M79.10 Myalgia, unspecified site (principal); R61 Generalized hyperhidrosis
CPT/HCPCS: 36415; 82085; 82550; 84165; 86038; 86140; 86225; 86235; 86480; 86780; 86803

== ENCOUNTER → 2022-02-24 | Outpatient (CLI) | payer BC, SELFPAY ==
[2022-02-24 17:50] LABS: Absolute Lymphocyte Count 0.97 X10^3/uL (0.83-4.51); Basophil# 0.02 X10^3/uL; Basophil% 0.3 % (0-1); Eosinophil# 0.02 X10^3/uL; Eosinophils% 0.3 % (0-5); Hematocrit 40.2 % (40-54); Hemoglobin 13.7 g/dL (13.0-16.5); Lymphocyte # 0.97 X10^3/ul (0.83-4.51); Lymphocyte % 14.9 % (19-41); Mean Corp Hgb Conc 34.1 g/dL (32-36); Mean Corpuscular Hgb 30.2 pg (27.0-32.0); Mean Corpuscular Volume 88.5 fL (80-94); Mean Platelet Vol. 9.4 fl (6.2-12.0); Monocyte# 0.45 X10^3/uL; Monocyte% 6.9 % (0-10); NRBC Flagged by Analyzer 0 % (0-5); Neutrophil % 77.1 % (47-70); Platelet Count 252 K/mm3 (150-450); RBC Distribution Width CV 12.9 % (11.6-14.6); RBC Distribution Width SD 41.5 fl (35.1-43.9); Red Blood Count 4.54 M/mm3 (4.6-6.2); White Blood Count 6.5 K/mm3 (4.4-11.0)
[2022-02-24 19:25] LABS: ALB/GLOB Ratio 1.2 RATIO (0.9-2.4); AST(SGOT) 14 U/L (15-37); Alanine Aminotransfer ALT/SGPT 33 U/L (16-61); Albumin, Serum 3.9 g/dL (3.2-5.0); Alkaline Phosphatase 57 U/L (45-117); Anion Gap 5 (5-15); BUN 17 mg/dL (7-18); BUN/Creat Ratio 17.9 RATIO (10-20); Calcium,Total 9.2 mg/dL (8.5-10.1); Chloride 106 mmol/L (98-107); Creatinine, Serum 0.95 mg/dL (0.70-1.30); EST Glomerular Filtration Rate 85 mL/min (>60); Est Glom Filt Rate - Afr Amer 103 mL/min (>60); Globulin 3.2 g/dL (2.2-4.2); Glucose 84 mg/dL (74-106); Potassium 3.8 mmol/L (3.5-5.1); Protein, Total 7.1 g/dL (6.4-8.2); Sodium Level 142 mmol/L (136-145); Thyroid Stim Hormone (TSH) 1.38 uIU/mL (0.358-3.74)
[2022-02-24 19:31] LABS: Vitamin D,25 Hydroxy 23.9 ng/mL
== END | disposition home or self-care (01) ==
PROVIDERS: PCP Family Medicine; Visit Provider Family Medicine
DX: R25.2 Cramp and spasm (principal)
CPT/HCPCS: 36415; 80053; 82306; 84443; 85025

== ENCOUNTER → 2022-03-03 | Outpatient (CLI) | payer BC, SELFPAY ==
[2022-03-03 15:27] LABS: Absolute Neutrophil Count 3.2 X10^3/uL (2.0-7.7); Basophil# 0.02 X10^3/uL; Basophil% 0.4 % (0-1); Eosinophil# 0.06 X10^3/uL; Eosinophils% 1.3 % (0-5); Hematocrit 41.3 % (40-54); Hemoglobin 13.8 g/dL (13.0-16.5); Lymphocyte % 17.9 % (19-41); Mean Corp Hgb Conc 33.4 g/dL (32-36); Mean Corpuscular Hgb 29.1 pg (27.0-32.0); Mean Corpuscular Volume 86.9 fL (80-94); Mean Platelet Vol. 9.7 fl (6.2-12.0); Monocyte# 0.36 X10^3/uL; Monocyte% 8.1 % (0-10); NRBC Flagged by Analyzer 0 % (0-5); Neutrophil # 3.22 X10^3/uL (2.7-7.7); Neutrophil % 72.1 % (47-70); Platelet Count 217 K/mm3 (150-450); RBC Distribution Width CV 12.9 % (11.6-14.6); Red Blood Count 4.75 M/mm3 (4.6-6.2); White Blood Count 4.5 K/mm3 (4.4-11.0)
[2022-03-03 15:42] LABS: Ferritin 99 ng/mL (26-388)
[2022-03-05 16:45] LABS: Angiotensin Convert Enzyme 28 U/L (14-82)
== END | disposition home or self-care (01) ==
PROVIDERS: PCP Family Medicine; Referring Provider Family Medicine; Visit Provider Family Medicine
DX: M79.10 Myalgia, unspecified site (principal); R25.2 Cramp and spasm
CPT/HCPCS: 36415; 82164; 82728; 85025

== ENCOUNTER 2022-07-03 15:09 | Outpatient (CLI) | payer BC, SELFPAY ==
[2022-07-03 17:34] LABS: Absolute Neutrophil Count 2.4 X10^3/uL (2.0-7.7); Basophil# 0.02 X10^3/uL; Basophil% 0.5 % (0-1); Eosinophil# 0.08 X10^3/uL; Eosinophils% 2.1 % (0-5); Hematocrit 40.9 % (40-54); Hemoglobin 13.3 g/dL (13.0-16.5); Lymphocyte % 21.4 % (19-41); Mean Corp Hgb Conc 32.5 g/dL (32-36); Mean Corpuscular Volume 89.1 fL (80-94); Mean Platelet Vol. 9.8 fl (6.2-12.0); Monocyte# 0.44 X10^3/uL; Monocyte% 11.8 % (0-10); NRBC Flagged by Analyzer 0 % (0-5); Neutrophil # 2.38 X10^3/uL (2.7-7.7); Neutrophil % 63.9 % (47-70); Platelet Count 212 K/mm3 (150-450); RBC Distribution Width CV 12.4 % (11.6-14.6); RBC Distribution Width SD 40.8 fl (35.1-43.9); Red Blood Count 4.59 M/mm3 (4.6-6.2); White Blood Count 3.7 K/mm3 (4.4-11.0)
[2022-07-03 17:48] LABS: Partial Thromboplast Time 26.2 Seconds (24.1-36.2); Prothrombin Time (Protime)PT. 12.5 SECONDS (11.7-14.9)
[2022-07-03 18:05] LABS: Ferritin 88 ng/mL (26-388)
[2022-07-07 12:08] LABS: Ash, White <0.10 kU/L (Class 0); Aspergillus fumigatus <0.10 kU/L (Class 0); Bermuda Grass <0.10 kU/L (Class 0); Birch <0.10 kU/L (Class 0); Black Walnut <0.10 kU/L (Class 0); Cat Hair / Dander,Stand <0.10 kU/L (Class 0); Cedar, Mountain <0.10 kU/L (Class 0); Cladosporium herbarum <0.10 kU/L (Class 0); Cockroach, American <0.10 kU/L (Class 0); Cottonwood <0.10 kU/L (Class 0); D farinae Mite <0.10 kU/L (Class 0); D pteronyssinus <0.10 kU/L (Class 0); Dog Epithelia <0.10 kU/L (Class 0); Elm, American White <0.10 kU/L (Class 0); Immunoglobulin E 26 IU/mL (6-495); Maple/Box Elder <0.10 kU/L (Class 0); Mulberry, White <0.10 kU/L (Class 0); Oak, White <0.10 kU/L (Class 0); Pecan <0.10 kU/L (Class 0); Penicillium Notatum <0.10 kU/L (Class 0); Pigweed, Rough <0.10 kU/L (Class 0); Ragweed, Short/Common <0.10 kU/L (Class 0); Russian Thistle <0.10 kU/L (Class 0); Sheep Sorrel <0.10 kU/L (Class 0); Sycamore, American <0.10 kU/L (Class 0); Timothy Grass <0.10 kU/L (Class 0)
[2022-07-07 16:59] LABS: Mouse Urine <0.10 kU/L (Class 0)
[2022-07-07 17:07] LABS: Beef <0.10 kU/L (Class 0); Chocolate <0.10 kU/L (Class 0); Corn <0.10 kU/L (Class 0); Egg, Whole <0.10 kU/L (Class 0); Milk (Cow) <0.10 kU/L (Class 0); Peanut <0.10 kU/L (Class 0); Pork <0.10 kU/L (Class 0); Soybean <0.10 kU/L (Class 0); Wheat <0.10 kU/L (Class 0)
[2022-07-07 20:09] LABS: ANTINUCLEAR ANTIBODIES DIRECT Negative (Negative)
[2022-07-09 08:15] LABS: Arsenic 7245 1 ug/L (0-9); Lead, Blood 1.4 ug/dL (0.0-3.4); Mercury, Blood 85324 < 1.0 ug/L (0.0-14.9)
== END 2022-07-03 23:59 | disposition home or self-care (01) ==
LOC: MFPLAB 15:11
PROVIDERS: PCP Family Medicine; Referring Provider Family Medicine; Visit Provider Family Medicine
DX: R04.0 Epistaxis (principal); M79.10 Myalgia, unspecified site
CPT/HCPCS: 36415; 82175; 82728; 82785; 83655; 83825; 85025; 85610; 85730; 86003; 86005; 86038; 86225; 86235

== ENCOUNTER 2022-10-10 07:00 | Outpatient (RCR) | payer BC, SELFPAY ==
--- NOTE | 2022-07-11 08:42 | HP.PTEVAL ---
Patient's Visit Information NOLVIA ESCOBAR Jr. is a 61 year old M referred to Physical Therapy by Dr. Juan Manuel Hernandez MD with a diagnosis of LEFT TARSAL TUNNEL SYNDROME. Date of Evaluation: 07/11/22 Physical Therapist: Aleksey Mahan, PT, Cert MDT, OCS - Visit Plan Frequency: 2x /Week Duration: 4 Weeks Plan: PT INERVENTIONS FLEXABLITY G-S/PLANTARFASCIA , MANUAL THERAPY STM /HAWK TOOL ,US /CP. ORTHOTICS NOT COVERED UNDER INSURANCE THUS RECOMMENDED OVERCOUNTER ORTHOTICS - Subjective This 61 y/o male presents to physical therapy with left tarsal tunnel syndrome . This patient has had left foot symptoms pain medial foot. Patient developed these symptoms about ~ 3weeks ago insidious onset of pain. Aggravating factors walking and standing extended periods .driving in car or sitting. Irritating factors standing on heel lifting toes. Alleviating factors rest. Denies paresthesia/tingling. No medications. No diagnostics. Patient symptoms affects affects QOL and function. 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 Patient is able to sleep. Patient goals have no pain. VOCATION: [employer]. SOCAIL: single - Pain Left Foot Pain Intensity (Out of 10): 6 Pain Intensity Range: 10 Comment: 12/04 - Objective POSTURE: pes planus calcaneal valgus. PALPATION: tender calcaneal lateral and plantar. NEURO: denies paresthesia. GAIT: antalgic gait left side due to calcaneal pain. AROM: dorsiflexion 5 degrees ,plantar flexion 65 degrees ,inversion 35 degrees , eversion 5 degrees. MMT: GTE 4/5 , DF 4/5, ,PF 4-/5 ,EV/IN 4/5. FLEXABLITY: G-S mid tight - Balance/Special Test Scores Lower Extremity Functional Score: 41 - Goals Goal 1:: I with HEP for planar fascia Goal Time Frame: 4-6 Weeks Goal 2:: Patient demonstrate 50% improvement with decrease pain and improve function Goal Time Frame: 4-6 Weeks Goal 3:: Patient to ambulate with improved gait with less antalgic 90% of the time Goal Time Frame: 4-6 Weeks Goal 4:: Patient to have min pain with standing at heel at job demands left heel. Goal Time Frame: 4-6 Weeks Goal 5:: Patient to improve LFES score by 5 points to improve QOL. Goal Time Frame: 4-6 Weeks - Rehabilitation Potential Physical Therapy Diagnosis: This patient has plantar fascia pain with heel very painful to palpate ,antalgic gait impairs ADLS ,and job demands thus benefit from skilled PT Rehabilitation Potential: Good - Anticipated Interventions Patient/Client Instruction: Educate patient on: Condition, Plan of Care For the Purpose of:: To decrease pain, To increase ROM, To improve muscle performance and motor function, To improve ability to perform ADL's, To increase tolerance to activity/condition/position, To improve ability of physical actions for home/community/work/leisure, To improve health of tissue, To decrease soft tissue restriction, To increase flexibility/ROM Therapeutic Exercise to Include: Strength training, Flexibilty training, Passive ROM, Active ROM For the Purpose of:: To decrease pain, To increase ROM, To improve nutrient delivery to tissue, To increase oxygenation perfusion, To improve muscle performance and motor function, To increase tolerance to activity/condition/position, To improve ability of physical actions for home/community/work/leisure, To improve health of tissue, To decrease soft tissue restriction, To increase flexibility/ROM Manual Therapy Techniques to Include: Massage, Soft tissue mobilization Comment: HEEL /PLANTAR FASCIA For the Purpose of:: To decrease pain, To increase ROM, To improve nutrient delivery to tissue, To increase oxygenation perfusion, To improve health of tissue, To decrease soft tissue restriction, To increase flexibility/ROM TENS: Yes IF ES: Yes Cryotherapy (ice pack, ice massage): Yes Ultrasound (thermal/non thermal): Yes For the Purpose of:: To decrease pain, To increase ROM, To improve nutrient delivery to tissue, To increase oxygenation perfusion, To improve health of tissue, To decrease soft tissue restriction Thank you for the opportunity to evaluate your patient. For Medicare and Medicare HMO plans, please review the plan of care and approve it. It will need to be FAXED BACK to us at [phone] for Medicare purposes. For Medicare only, by signing this I certify the plan of care. Please let me know if there are questions or concerns regarding this plan of care. Physician Signature: Date:
--- NOTE | 2022-08-05 14:00 | HP.PTEVAL2 ---
Patient's Visit Information NOLVIA ESCOBAR Jr. is a 61 year old M referred to Physical Therapy by Dr. Juan Manuel Hernandez MD with a diagnosis of R shoulder strain. Date of Evaluation: 08/05/22 Physical Therapist: JESENIA Pang - Visit Plan Frequency: 2x /Week Duration: 6 Weeks Plan: 2X/ week for 6 weeks for R shoulder PROM, AAROM, AROM, scapular and RC strength, postural exercises, bicep strength, and may use E-stim and ice as needed. HEP: supine wand flex, wand bench press, standing wand abd, and pendulums - Subjective Subjective: His R shoulder started to bother him about 3 weeks ago and he thinks that he slept on it wrong. Pt reports that his shoulder is killing him and his ROM is awful. He had RC surgery since 1994 and the pain always comes and goes and how active he is. His shoulder is almost frozen now. The last few weeks it continues to get worse and he has trouble sleeping and his ROM is bad enough that he can not get to work. He wants to go back to work on Thursday. R handed. FW to the side and behind his back all cause pain. - Pain R shoulder Intensity: 0 Pain Intensity Range: 9 Comment: with movement - Objective Objective: R handed. R 50# and L 95#. R shoulder AROM: flex 75, ABD 65, ER 60, IR L5. L shoulder AROM : Flex 165, ABD 175, ER 74 IR T6. R shoulder MMT: flex 4.2#, ABD 4.7, ER 8.4 and IR 7.6. L shoulder MMT: flex 9.5 and and 12.2, ER 12.3 and IR 12.2. Palpation: tender along the bicep groove and under the acromion. Pt has increase popping in the R shoulder joint with ER motion - Goals Goal 1:: I HEP Goal Time Frame: 6-8 Weeks Goal 2:: Increase R shoulder AROM (R shoulder AROM: flex 75, ABD 65, ER 60, IR L5. L shoulder AROM : Flex 165, ABD 175, ER 74 IR T6) Goal Time Frame: 6-8 Weeks Goal 3:: Increase R shoulder strength (R shoulder MMT: flex 4.2#, ABD 4.7, ER 8.4 and IR 7.6. L shoulder MMT: flex 9.5 and and 12.2, ER 12.3 and IR 12.2) Goal Time Frame: 6-8 Weeks Goal 4:: Be able to use his R arm with less than 1/10 pain Goal Time Frame: 6-8 Weeks - Rehabilitation Potential Rehabilitation Potential: Good - Anticipated Interventions Patient/Client Instruction: Educate patient on: Condition, Plan of Care For the Purpose of:: To decrease pain, To increase ROM, To improve nutrient delivery to tissue, To improve muscle performance and motor function, To improve ability to perform ADL's, To increase tolerance to activity/condition/position, To improve performance and independence with ADL's, To improve health of tissue, To decrease soft tissue restriction, To increase flexibility/ROM Therapeutic Exercise to Include: Strength training, Postural training, Flexibilty training, Passive ROM, Active ROM, Scapular Strength/Stabilization For the Purpose of:: To decrease pain, To increase ROM, To improve nutrient delivery to tissue, To improve muscle performance and motor function, To improve ability to perform ADL's, To increase tolerance to activity/condition/position, To improve performance and independence with ADL's, To decrease level of supervision to perform tasks, To improve health of tissue, To decrease soft tissue restriction, To increase flexibility/ROM Manual Therapy Techniques to Include: Passive ROM For the Purpose of:: To increase ROM IF ES: Yes Cryotherapy (ice pack, ice massage): Yes For the Purpose of:: To decrease pain, To increase ROM, To improve nutrient delivery to tissue Thank you for the opportunity to evaluate your patient. For Medicare and Medicare HMO plans, please review the plan of care and approve it. It will need to be FAXED BACK to us at [phone] for Medicare purposes. For Medicare only, by signing this I certify the plan of care. Please let me know if there are questions or concerns regarding this plan of care. Physician Signature: Date:
--- NOTE | 2022-09-16 08:58 | HP.PTREVAL_ITS ---
Dr. Juan Manuel Hernandez MD, It has been my pleasure to treat NOLVIA ESCOBAR Jr. over the last 6 visits for LEFT TARSAL TUNNEL SYNDROME. Please see the progress note below for an update on the physical therapy plan of care! Subjective: Doing better ,, Objective/Function: Doing well ambulated with normal ryan. mild tenderness calcaneal Plan Plan: PT INERVENTIONS FLEXABLITY G-S/PLANTARFASCIA , MANUAL THERAPY STM /HAWK TOOL ,US /CP. ORTHOTICS NOT COVERED UNDER INSURANCE THUS RECOMMENDED O VERCOUNTER ORTHOTICS Balance/Gait/Functional tests - Balance/Special Test Scores Lower Extremity Functional Score: 41 Quick DASH Score: 40.9075 Goals Goal 1:: I with HEP for planar fascia Goal Time Frame: 4-6 Weeks Goal 2:: Patient demonstrate 50% improvement with decrease pain and improve function Goal Time Frame: 4-6 Weeks Goal 3:: Patient to ambulate with improved gait with less antalgic 90% of the time Goal Time Frame: 4-6 Weeks Goal 4:: Patient to have min pain with standing at heel at job demands left heel. Goal Time Frame: 4-6 Weeks Goal 5:: Patient to improve LFES score by 5 points to improve QOL. Goal Time Frame: 4-6 Weeks Anticipated Interventions Patient/Client Instruction: Educate patient on: Condition, Plan of Care For the Purpose of:: To decrease pain, To increase ROM, To improve muscle performance and motor function, To improve ability to perform ADL's, To increase tolerance to activity/condition/position, To improve ability of physical actions for home/community/work/leisure, To improve health of tissue, To decrease soft tissue restriction, To increase flexibility/ROM Therapeutic Exercise to Include: Strength training, Flexibilty training, Passive ROM, Active ROM For the Purpose of:: To decrease pain, To increase ROM, To improve nutrient delivery to tissue, To increase oxygenation perfusion, To improve muscle performance and motor function, To increase tolerance to activity/condition/position, To improve ability of physical actions for home/community/work/leisure, To improve health of tissue, To decrease soft tissue restriction, To increase flexibility/ROM Manual Therapy Techniques to Include: Massage, Soft tissue mobilization Comment: HEEL /PLANTAR FASCIA For the Purpose of:: To decrease pain, To increase ROM, To improve nutrient delivery to tissue, To increase oxygenation perfusion, To improve health of tissue, To decrease soft tissue restriction, To increase flexibility/ROM TENS: Yes IF ES: Yes Cryotherapy (ice pack, ice massage): Yes Ultrasound (thermal/non thermal): Yes For the Purpose of:: To decrease pain, To increase ROM, To improve nutrient delivery to tissue, To increase oxygenation perfusion, To improve health of tissue, To decrease soft tissue restriction Please do not hesitate to contact me at [phone] by phone or if you have questions or concerns regarding this new plan of care! Sincerely, Maura Lyon, MPT
--- NOTE | 2022-10-10 11:21 | HP.PTREVAL ---
Dr. Juan Manuel Hernandez MD, It has been my pleasure to treat NOLVIA ESCOBAR Jr. over the last 6 visits for LEFT TARSAL TUNNEL SYNDROME. Please see the progress note below for an update on the physical therapy plan of care! Subjective: Doing better ,, Objective/Function: Doing well ambulated with normal ryan. mild tenderness calcaneal Plan Plan: PT INERVENTIONS FLEXABLITY G-S/PLANTARFASCIA , MANUAL THERAPY STM /HAWK TOOL ,US /CP. ORTHOTICS NOT COVERED UNDER INSURANCE THUS RECOMMENDED OVERCOUNTER ORTHOTICS Balance/Gait/Functional tests - Balance/Special Test Scores Lower Extremity Functional Score: 41 Quick DASH Score: 40.9075 Goals Goal 1:: I with HEP for planar fascia Goal Time Frame: 4-6 Weeks Goal 2:: Patient demonstrate 50% improvement with decrease pain and improve function Goal Time Frame: 4-6 Weeks Goal 3:: Patient to ambulate with improved gait with less antalgic 90% of the time Goal Time Frame: 4-6 Weeks Goal 4:: Patient to have min pain with standing at heel at job demands left heel. Goal Time Frame: 4-6 Weeks Goal 5:: Patient to improve LFES score by 5 points to improve QOL. Goal Time Frame: 4-6 Weeks Anticipated Interventions Patient/Client Instruction: Educate patient on: Condition, Plan of Care For the Purpose of:: To decrease pain, To increase ROM, To improve muscle performance and motor function, To improve ability to perform ADL's, To increase tolerance to activity/condition/position, To improve ability of physical actions for home/community/work/leisure, To improve health of tissue, To decrease soft tissue restriction, To increase flexibility/ROM Therapeutic Exercise to Include: Strength training, Flexibilty training, Passive ROM, Active ROM For the Purpose of:: To decrease pain, To increase ROM, To improve nutrient delivery to tissue, To increase oxygenation perfusion, To improve muscle performance and motor function, To increase tolerance to activity/condition/position, To improve ability of physical actions for home/community/work/leisure, To improve health of tissue, To decrease soft tissue restriction, To increase flexibility/ROM Manual Therapy Techniques to Include: Massage, Soft tissue mobilization Comment: HEEL /PLANTAR FASCIA For the Purpose of:: To decrease pain, To increase ROM, To improve nutrient delivery to tissue, To increase oxygenation perfusion, To improve health of tissue, To decrease soft tissue restriction, To increase flexibility/ROM TENS: Yes IF ES: Yes Cryotherapy (ice pack, ice massage): Yes Ultrasound (thermal/non thermal): Yes For the Purpose of:: To decrease pain, To increase ROM, To improve nutrient delivery to tissue, To increase oxygenation perfusion, To improve health of tissue, To decrease soft tissue restriction Please do not hesitate to contact me at [phone] by phone or if you have questions or concerns regarding this new plan of care! Sincerely, Maura Lyon, MPT
--- NOTE | 2022-12-26 07:29 | HP.PTDCSUM ---
Discharge Summary D/C summary: It has been my pleasure to treat NOLVIA ESCOBAR Jr. referred by Dr. Juan Manuel Hernandez MD, with the diagnosis of LEFT TARSAL TUNNEL SYNDROME for a total of 6 visit(s). Discharge Date: Please see the following information for a summary of their discharge status. Subjective Subjective: Doing better ,, Pain Left Foot: Pain Intensity (Out of 10): 1 Overall Improvement % Improvement: 70 Objective Objective/Function: Doing well ambulated with normal ryan mild tenderness calcaneal Goals Goal 1:: I with HEP for planar fascia Goal 2:: Patient demonstrate 50% improvement with decrease pain and improve function Goal 3:: Patient to ambulate with improved gait with less antalgic 90% of the time Goal 4:: Patient to have min pain with standing at heel at job demands left heel. Goal 5:: Patient to improve LFES score by 5 points to improve QOL. Plan Plan: PT INERVENTIONS FLEXABLITY G-S/PLANTARFASCIA , MANUAL THERAPY STM /HAWK TOOL ,US /CP ORTHOTICS NOT COVERED UNDER INSURANCE THUS RECOMMENDED OVERCOUNTER ORTHOTICS D/C Information d/c sentence: If there are questions or concerns regarding this patient's physical therapy, please feel free to call me at [phone]. Thank you for the referral of this patient. Sincerely, Aleksey Mahan, PT, Cert MDT, OCS Balance/Gait/Functional tests Balance/Special Test Scores Lower Extremity Functional Score: 41 Quick DASH Score: 40.9075 Improvement % Improvement: 70
== END 2022-10-10 19:00 | disposition home or self-care (01) ==
LOC: PT 07:00
PROVIDERS: PCP Family Medicine; Referring Provider Family Medicine; Visit Provider Family Medicine
DX: G57.52 Tarsal tunnel syndrome, left lower limb (principal); R25.2 Cramp and spasm
CPT/HCPCS: 97014; 97035; 97110; 97140; 97161; 97530; G0283

== ENCOUNTER → 2023-08-06 | Outpatient (CLI) | payer BC, SELFPAY ==
--- NOTE | 2023-08-06 14:04 | RAD_ITS ---
STUDY: X-RAY - RIGHT HAND REASON FOR EXAM: Male, 62 years old. Pain. TECHNIQUE: 3 views of the right hand. COMPARISON: None. FINDINGS: Normal radiocarpal articulation. Normal distal radioulnar joint. Normal visualized carpal bones. Normal carpal articulations. Normal carpometacarpal articulation of the thumb. Normal second through fifth carpometacarpal joints. Normal metacarpi. Normal metacarpophalangeal joint of the thumb. Normal interphalangeal joint of the thumb. Normal proximal and distal phalanges of the thumb. Normal metacarpophalangeal joints of the second through fifth fingers. Normal proximal and distal interphalangeal joints of the second through fifth fingers. Normal phalanges of the second through fifth fingers. The soft tissue structures are unremarkable. RAD/Hand Min 3 Views IMPRESSION: Normal x-ray examination of the right hand. Electronically Signed: Felix Green MD at 15:48 EDT ,
--- NOTE | 2023-08-06 14:15 | RAD_ITS ---
STUDY: X-RAY - LEFT HAND REASON FOR EXAM: Male, 62 years old. Joint pain in both hands. TECHNIQUE: 3 views of the left hand. COMPARISON: None. FINDINGS: Normal radiocarpal articulation. Normal distal radioulnar joint. Normal visualized carpal bones. Normal carpal articulations. Normal carpometacarpal articulation of the thumb. Normal second through fifth carpometacarpal joints. Normal metacarpi. Normal metacarpophalangeal joint of the thumb. Normal interphalangeal joint of the thumb. Normal proximal and distal phalanges of the thumb. Normal metacarpophalangeal joints of the second through fifth fingers. Normal proximal and distal interphalangeal joints of the second through fifth fingers. Normal phalanges of the second through fifth fingers. The soft tissue structures are unremarkable. RAD/Hand Min 3 Views IMPRESSION: Normal x-ray examination of the left hand. Electronically Signed: Felix Green MD at 15:51 EDT ,
[2023-08-06 15:23] LABS: Absolute Lymphocyte Count 0.93 X10^3/uL (0.83-4.51); Absolute Neutrophil Count 4.3 X10^3/uL (2.0-7.7); Basophil# 0.02 X10^3/uL; Basophil% 0.3 % (0-1); Eosinophil# 0.03 X10^3/uL; Eosinophils% 0.5 % (0-5); Hematocrit 40.3 % (40-54); Hemoglobin 13.5 g/dL (13.0-16.5); Lymphocyte # 0.93 X10^3/ul (0.83-4.51); Lymphocyte % 15.9 % (19-41); Mean Corp Hgb Conc 33.5 g/dL (32-36); Mean Corpuscular Hgb 28.9 pg (27.0-32.0); Mean Corpuscular Volume 86.3 fL (80-94); Mean Platelet Vol. 9.9 fl (6.2-12.0); Monocyte# 0.45 X10^3/uL; Monocyte% 7.7 % (0-10); NRBC Flagged by Analyzer 0 % (0-5); Neutrophil # 4.31 X10^3/uL (2.7-7.7); Neutrophil % 73.9 % (47-70); Platelet Count 234 K/mm3 (150-450); RBC Distribution Width SD 40.9 fl (35.1-43.9); Red Blood Count 4.67 M/mm3 (4.6-6.2); White Blood Count 5.8 K/mm3 (4.4-11.0)
[2023-08-06 16:50] LABS: Erythrocyte Sedimentation Rate 11 mm/hr (0-20)
[2023-08-06 16:58] LABS: CRP < 2.90 mg/L (0.0-3.0); Rheumatoid Factor < 10.0 IU/mL (<15); Uric Acid 3.2 mg/dL (3.5-7.2)
[2023-08-10 16:09] LABS: ANTINUCLEAR ANTIBODIES DIRECT Negative (Negative)
== END | disposition home or self-care (01) ==
LOC: MTLAB 14:04
PROVIDERS: PCP Family Medicine; Referring Provider Family Medicine; Visit Provider Family Medicine
DX: M25.541 Pain in joints of right hand (principal); M25.542 Pain in joints of left hand
CPT/HCPCS: 36415; 73130; 84550; 85025; 85652; 86038; 86140; 86431

== ENCOUNTER 2023-11-26 08:00 | Outpatient (RCR) | payer BC, SELFPAY ==
--- NOTE | 2023-09-02 10:19 | HP.PTEVAL ---
Patient's Visit Information Visit Information Visit Information: NOLVIA CORDERO Jr. is a 62 year old M referred to Physical Therapy by Dr. Juan Manuel Hernandez MD with a diagnosis of . Date of Evaluation: 09/02/23 Physical Therapist: Darci Larkin, PT, CHRISTIANO, SCS, CSCS Visit Plan Frequency: 2x /Week Duration: 3 Weeks Plan: Modalities of and US for relaxation STM, Manual mobilization Traction Subjective Subjective: Mr. Cordero is a pleasant 62 yo who was referred to our care by Dr Juan Manuel Hernandez. The patient states that he has been having neck and wrist pain for about 3-4 months. 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 He reports achiness in his neck and at times it goes into his hands and wrist. Occasionally feels as if they are gong to sleep. Reports he sleeps 4-5 hours and his neck and wrist wake him. Pain Bilateral Neck: Pain Intensity (Out of 10): 6 Pain Intensity Range: 2 and 9 Objective Objective: Mr. Cordero presents to clinic today following getting off his shift. 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 Appears to have diminished reflexes at 1/3 I did not appreciate a significant strength difference in his UE at this time and OT will assess further. When I turned my attention to his c spine he had significant tenderness along the sub occipital region as well as transverse process on right at C3-4 and Left C5-7. Distraction appeared to give him relieve. His C ROM was 30 degrees L&R rotation. Extension and Flexion where WNLs. Balance/Special Test Scores Oswestry Neck Score: 15 Goals Goal 1:: Return demo HEP, understand what postures at work make him worse. Goal Time Frame: 1 Week Goal 2:: Improve ROM to 40 degrees L/R rotation Goal Time Frame: 2-4 Weeks Rehabilitation Potential Physical Therapy Diagnosis: B Neck pain with B wrist tendonitis Rehabilitation Potential: Good Anticipated Interventions Patient/Client Instruction: Educate patient on: Condition and Plan of Care For the Purpose of:: To decrease pain, To increase ROM, To increase flexibility/ROM and To assume or resume ADL's Therapeutic Exercise to Include: Strength training and Flexibilty training For the Purpose of:: To decrease pain, To increase ROM and To assume or resume ADL's Manual Therapy Techniques to Include: Massage, Passive ROM and Soft tissue mobilization For the Purpose of:: To decrease pain, To increase ROM, To increase flexibility/ROM and To assume or resume ADL's Ultrasound (thermal/non thermal): Yes Text: Thank you for the opportunity to evaluate your patient. For Medicare and Medicare HMO plans, please review the plan of care and approve it. It will need to be FAXED BACK to us at [phone] for Medicare purposes. For Medicare only, by signing this I certify the plan of care. Please let me know if there are questions or concerns regarding this plan of care. Physician Signature: Date:
--- NOTE | 2023-09-02 11:54 | HP.OTEVAL_ITS ---
Patient's Visit Information Visit Information Visit Information: NOLVIA ESCOBAR Jr. is a 62 year old M, referred to Occupational Therapy by Dr. Juan Manuel Hernandez MD, with a diagnosis of bilateral hand/wrist tendonitis. Date of Evaluation: 09/02/23 Occupational Therapist: SARAH Thomas/Ghassan, CHT Subjective Subjective: This 62 year old male was seen for OT eval with dx of bilateral wrist/hand tendonitis. 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 he will pick this up. pt states pain started about two months ago and is having pain at night pt states if he is not at work it does not change. pt states hands are very tender he is having increase difficulty with picking up items and how he holds broom handles right handed. pt states dr. jordan put him on a zpack to help with pain and inflammation ( pt states this was somewhat helpful) Pain bilateral hands: Current Pain Intensity: 5 Pain Intensity Range: 5 and 8 ROM ROM Comments: pt states painful with ROM but painful - pt demo 1 away from composite fist on bilateral hands Strength Ammonia Solution Preparer: right 15# left 40# pain with both Lateral Pinch: right 12# left 14# Tripod Pinch: right 10# left 10# Sensation Sensation Comments: pt states tingling comes and goes states in LF and wakes him up at night Quick DASH-Disab of Arm,Shoulder& Hand Quick DASH Score: 43.3325 Goals Goal:: pt will demo a increase in bilateral electrical tech strength by 15# or greater to return to pts PLOF by d/c Goal:: pt will demo full composite fist with bilateral hands to return to daily tasks by d/c Goal:: pt will report no pain greater than 2/10 with use of bilateral hands by d/c Goal:: Pt will demo understanding of work/lifting and carry ergonomics to decrease stress on tendons to increase pts independent with ADLs, IADLS and work tasks by d/c. Pt will demo understanding of joint protection and ergonomics when performing BADLs and IADLs by d/c Pt will demo understanding of adaptive Equipment use to decrease stress on joints to allow pt to perform BADSL and IADLS at FLORIN level. Rehabilitation General Assessment: pt demo with limited ability to close bilateral hands into full composite fist without pain- this is limiting daily tasks and work tasks- pt demo with trigger of bilateral hands causing increase pain. pt would benefit from skilled OT services 1-2x week for 3-4 weeks to decrease pts pain and return pt to her PLOF. Today therapist ed. pt on use of ice massage to decrease flexor tendon inflammation, therapist ed. pt on least restrictive device to avoid trigger of MF ( use of tape at this time this will allow pt to wear under work gloves) therapist also ed. 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 therapist discussed POC pt demo understanding and agrees to POC. Rehabilitation Potential: Good Anticipated Interventions Anticipated Interventions: A/AAROM/PROM, Strengthening, Triggerpoint Release, Wound Care, Modalities, Orthoses, Joint Protection/Energy Conservation, Ergonomic Education, Education re assistive Equipment, Education re Diagnosis and Home Program Visit Plan Frequency: 2-3x /Week Duration: 6 Weeks TEXT: Thank you for the opportunity to evaluate your patient. For Medicare and Medicare HMO plans, please review the plan of care and approve it. It will need to be FAXED BACK to us at [phone] for Medicare purposes. Please let me know if there are questions or concerns regarding this plan of care. Physician Signature: Date:
--- NOTE | 2023-11-26 09:16 | HP.OTREVAL ---
Re-Evaluation Intro: Dr. Juan Manuel Hernandez MD, It has been my pleasure to treat NOLVIA ESCOBAR Jr. over the last 10 visits for bilateral hand/wrist tendonitis. Please see the progress note below for an update on the occupational therapy plan of care! Subjective Subjective: arrives after PT 15 min late doing well [place] complete this date Objective Objective/Function: pt is able to make a fist however MF will trigger if he does so pt reports pain still at about 6/10 despite coming for therapy session completion of pain management US as well as trigger point release ed has been provided on joint protection and positioning during daily activities for pain management ed on bracing/ taping to wear during day and night to prevent triggering pt at 10th visit last schedule OT session this date pt would like to continue with conservative management attending therapy. pt due for progress report this date with physician review to weigh other alternative options please reply and provide additional order for services if you agree with continuing conservative management at this time Plan Plan Frequency: 1-2x /Week Duration: 3 Weeks Plan: decrease triggering of bilateral MF ed. on work ergo to avoid repetitive fisting Goals Goals Patient Goals: Decrease Pain, Use Hand/Wrist/Arm Normally Again and Be More Independent in ADLS Goal:: pt will demo a increase in bilateral oral communication instructor strength by 15# or greater to return to pts PLOF by d/c 11/26/23: L hand 30# R hand 40# Goal:: pt will demo full composite fist with bilateral hands to return to daily tasks by d/c 11/26/23: able to make fist however does trigger when doing at B MF Goal:: pt will report no pain greater than 2/10 with use of bilateral hands by d/c 11/26/23: pain rating 6/10 this date Goal:: Pt will demo understanding of work/lifting and carry ergonomics to decrease stress on tendons to increase pts independent with ADLs, IADLS and work tasks by d/c. Pt will demo understanding of joint protection and ergonomics when performing BADLs and IADLs by d/c 11/26/23: understands joint positioning ed to assure carryover Pt will demo understanding of adaptive Equipment use to decrease stress on joints to allow pt to perform BADSL and IADLS at FLORIN level. 11/26/23: ed provided on AE Anticipated Interventions Anticipated Interventions Anticipated Interventions: A/AAROM/PROM, Strengthening, Triggerpoint Release, Wound Care, Modalities, Orthoses, Joint Protection/Energy Conservation, Ergonomic Education, Education re assistive Equipment, Education re Diagnosis and Home Program Re-Evaluation Ending Re-evaluation ending: Please do not hesitate to contact me at [phone] by phone or if you have questions or concerns regarding this new plan of care! Sincerely, Deloris Guevara
== END 2023-11-26 19:00 | disposition home or self-care (01) ==
LOC: OT 08:00
PROVIDERS: PCP Family Medicine; Referring Provider Family Medicine; Visit Provider Family Medicine
DX: M77.9 Enthesopathy, unspecified (principal); M54.2 Cervicalgia
CPT/HCPCS: 97012; 97035; 97110; 97140; 97161; 97166; 97530

== ENCOUNTER → 2023-12-25 | Outpatient (CLI) | payer BC, SELFPAY ==
--- NOTE | 2023-12-25 10:04 | RAD_ITS ---
STUDY: X-RAY - PARANASAL SINUSES REASON FOR EXAM: Male, 63 years old. EPISTAXIS TECHNIQUE: view(s) of the paranasal sinuses were obtained. COMPARISON: None. FINDINGS: There is opacification of the left maxillary sinus Normal visualized facial bones. The soft tissue structures are unremarkable. RAD/Sinuses min 3 Views IMPRESSION: Opacification of the left maxillary sinus. Electronically Signed: Edvin Thakur MD at 14:12 EDT ,
== END | disposition home or self-care (01) ==
LOC: MTRAD 09:58
PROVIDERS: PCP Family Medicine; Referring Provider Family Medicine; Visit Provider Family Medicine
DX: R04.0 Epistaxis (principal)
CPT/HCPCS: 70220

== ENCOUNTER → 2024-02-02 | Outpatient (CLI) | payer BC, SELFPAY ==
--- NOTE | 2024-02-02 06:49 | CT_ITS ---
STUDY: CT MAXILLOFACIAL SINUSES REASON FOR EXAM: Male, 63 years old. SINUSITIS- LEFT SIDE RADIATION DOSAGE (If Supplied By Facility): CTDIvol = ( 33.06 ) mGy, DLP = ( 866.91 ) mGycm TECHNIQUE: The patient was scanned in a multi detector CT scanner. High resolution axial imaging was performed without the administration of intravenous contrast material. Sagittal and coronal images were reconstructed. Individualized dose optimization techniques were used for this CT. COMPARISON: 12/25/2023, CT brain from 2018. FINDINGS: Once again identified is a completely opacified left maxillary sinus with breakthrough of the medial wall of the left maxillary sinus and persistent soft tissue density within the left ethmoid sinus. This is unchanged dating back to 2018, I suspect there may be an underlying polyp. There is occlusion of the left ostiomeatal complex. FRONTAL SINUSES: Normal aeration, without mucosal inflammatory disease. SPHENOIDAL SINUSES: Normal aeration, without mucosal inflammatory disease. There is patency of the right maxillary infundibuli with normal uncinate processes, ethmoid bullae, and hiatus semilunaris. Normal right middle turbinate. Normal right inferior turbinate. Normal midline nasal septum. There is patency of the left nasal airway The visualized osseous structures are normal. The visualized bilateral orbital contents are normal. 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 No change dating back to 2018. There may be an underlying polyp Remaining paranasal sinuses are free of mucosal thickening or air-fluid levels. No fracture or suspicious osseous lesion Electronically Signed: Panchito Diaz MD at 8:40 EDT ,
== END | disposition home or self-care (01) ==
LOC: CT 06:46
PROVIDERS: PCP Family Medicine; Referring Provider Otolaryngology; Visit Provider Otolaryngology
DX: J32.8 Other chronic sinusitis (principal)
CPT/HCPCS: 70486

== ENCOUNTER → 2024-03-08 | Outpatient (CLI) | payer BC, SELFPAY ==
[2024-03-08 10:54] LABS: Hematocrit 39.9 % (40-54); Hemoglobin 13.2 g/dL (13.0-16.5); Mean Corp Hgb Conc 33.1 g/dL (32-36); Mean Corpuscular Hgb 28.4 pg (27.0-32.0); Mean Platelet Vol. 9.6 fl (6.2-12.0); Platelet Count 211 K/mm3 (150-450); RBC Distribution Width CV 12.9 % (11.6-14.6); RBC Distribution Width SD 40.3 fl (35.1-43.9); Red Blood Count 4.64 M/mm3 (4.6-6.2); White Blood Count 3.5 K/mm3 (4.4-11.0)
[2024-03-08 11:18] LABS: Anion Gap 5 (5-15); BUN 14 mg/dL (7-18); BUN/Creat Ratio 14.5 RATIO (10-20); Calcium,Total 9.1 mg/dL (8.5-10.1); Chloride 110 mmol/L (98-107); Creatinine, Serum 0.97 mg/dL (0.70-1.30); EST Glomerular Filtration Rate 83 mL/min (>60); Est Glom Filt Rate - Afr Amer 100 mL/min (>60); Glucose 118 mg/dL (74-106); Sodium Level 141 mmol/L (136-145)
== END | disposition home or self-care (01) ==
LOC: PSN 10:22
PROVIDERS: PCP Family Medicine; Referring Provider Otolaryngology; Visit Provider Otolaryngology
DX: Z01.810 Encounter for preprocedural cardiovascular examination (principal); Z01.812 Encounter for preprocedural laboratory examination
CPT/HCPCS: 36415; 80048; 85027; 93005

== ENCOUNTER 2024-03-29 07:30 | Outpatient (RCR) | payer BC, SELFPAY ==
--- NOTE | 2024-03-01 08:28 | HP.OTEVAL ---
Patient's Visit Information Visit Information Visit Information: NOLVIA ESCOBAR Jr. is a 63 year old M, referred to Occupational Therapy by Dr. Wero Titus MD, with a diagnosis of bilateral joint pain. Date of Evaluation: 03/01/24 Occupational Therapist: Paloma Prasad, MARIAR/Ghassan, CHT Subjective Subjective: This 63 year old male was seen for OT eval with dx of joint pain of bilateral hands. pt was seen in facility in past for bilateral hand pain and trigger fingers- pt states he felt he was doing ok- but noticed with increased activity hands get sore-stiff- increase trigger and currently has right wrist pain just progressively getting worse not improving. 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 Pain right hand: Current Pain Intensity: 8 Pain Intensity Range: 5 left hand: Current Pain Intensity: 8 Pain Intensity Range: 5 Strength Cable Television Installer: right 15# left 35# Lateral Pinch: right 10# left 14# Tripod Pinch: right 6# left 8# Sensation Sensation Comments: denies Quick DASH-Disab of Arm,Shoulder& Hand Quick DASH Score: 68.3325 Goals Goal:: pt will demo a increase in bilateral long winder tender strength by 20# to increase pts IND with ADLs and IADLs by d.c Goal:: pt will demo a increase in bilateral joint ROM by forming composite fist to perform ADLs by d/c pt will demo a reduction in bilateral trigger fingers to less than 3x a day Goal:: pt will report pain no greater than 3/10 with use of hand by d.c Goal:: Pt will demo understanding of work/lifting and carry ergonomics to decrease stress on tendons to increase pts independent with ADLs, IADLS and work tasks by d/c. Pt will demo understanding of using supportive bracing 80% of workday/ADLS to decrease stress on tendon origin to allow healing and decrease pain by end of 2nd session. Rehabilitation General Assessment: pt demo with limited ability to form a composite fist with positive triggering of right and left MF. Pt has increase pain the more he uses his hands. pt is limited with ADLs and IADLs and would benefit from further skilled OT services 2-3x week for 4 weeks to decrease pain, ed. on joint protection naman. and use of orthosis, to assist pt in mtg of joint pain. Pt demo understanding and agree to POC. Rehabilitation Potential: Good Anticipated Interventions Anticipated Interventions: A/AAROM/PROM, Strengthening, Triggerpoint Release, Modalities, Orthoses, Joint Protection/Energy Conservation, Ergonomic Education, Education re assistive Equipment, Education re Diagnosis and Home Program Visit Plan Frequency: 2-3x /Week Duration: 4 Weeks TEXT: Thank you for the opportunity to evaluate your patient. For Medicare and Medicare HMO plans, please review the plan of care and approve it. It will need to be FAXED BACK to us at [phone] for Medicare purposes. Please let me know if there are questions or concerns regarding this plan of care. Physician Signature: Date:
--- NOTE | 2024-07-05 08:40 | HP.OTDCSUM_ITS ---
Discharge Summary D/C Summary: It has been my pleasure to treat NOLVIA ESCOBAR Jr. under orders from Dr. Wero Titus MD, for the diagnosis of bilateral joint pain for a total of 7 visit(s). Please see the following information for a summary of their discharge status. Overall Improvement % Improvement: 65 Objective Objective/Function: positive trigger on bilateral MF- Painful after work- Goals Patient Goals: Regain Mobility, Decrease Pain, Decrease Swelling/Stiffness, Improve Fine Motor Skills, Use Hand/Wrist/Arm Normally Again and Resume Former Household Responsibilities (Cooking,Cleaning,Yard, etc.) Goal:: pt will demo a increase in bilateral associate web developer strength by 20# to increase pts IND with ADLs and IADLs by d.c Goal:: pt will demo a increase in bilateral joint ROM by forming composite fist to perform ADLs by d/c pt will demo a reduction in bilateral trigger fingers to less than 3x a day Goal:: pt will report pain no greater than 3/10 with use of hand by d.c Goal:: Pt will demo understanding of work/lifting and carry ergonomics to decrease stress on tendons to increase pts independent with ADLs, IADLS and work tasks by d/c. Pt will demo understanding of using supportive bracing 80% of workday/ADLS to decrease stress on tendon origin to allow healing and decrease pain by end of 2nd session. Plan Plan: d/c D/C Information Discharge Comments: pt was seen for OT for bilateral trigger fingers on MF- d/c sentence: If there are questions or concerns regarding this patient's occupational therapy, please fell free to call me at [phone]. Thank you for the referral of this patient. Sincerely, Paloma Prasad, OTR/L, CHT
== END 2024-03-29 19:00 | disposition home or self-care (01) ==
LOC: OT 07:30
PROVIDERS: PCP Family Medicine; Referring Provider Family Medicine; Visit Provider Family Medicine
DX: M25.541 Pain in joints of right hand (principal); M25.542 Pain in joints of left hand
CPT/HCPCS: 97035; 97110; 97140; 97166; 97760

== ENCOUNTER → 2024-06-07 | Outpatient (CLI) | payer BC, SELFPAY ==
[2024-06-07 17:56] LABS: Absolute Lymphocyte Count 0.95 X10^3/uL (0.83-4.51); Absolute Neutrophil Count 2.4 X10^3/uL (2.0-7.7); Basophil# 0.03 X10^3/uL; Basophil% 0.8 % (0-1); Eosinophil# 0.07 X10^3/uL; Eosinophils% 1.8 % (0-5); Hemoglobin 13.6 g/dL (13.0-16.5); Lymphocyte # 0.95 X10^3/ul (0.83-4.51); Lymphocyte % 24.5 % (19-41); Mean Corpuscular Hgb 29.3 pg (27.0-32.0); Mean Corpuscular Volume 86.2 fL (80-94); Mean Platelet Vol. 9.9 fl (6.2-12.0); Monocyte# 0.39 X10^3/uL; Monocyte% 10.1 % (0-10); NRBC Flagged by Analyzer 0 % (0-5); Neutrophil # 2.42 X10^3/uL (2.7-7.7); Neutrophil % 62.5 % (47-70); Platelet Count 227 K/mm3 (150-450); RBC Distribution Width CV 13.2 % (11.6-14.6); RBC Distribution Width SD 41.2 fl (35.1-43.9); Red Blood Count 4.64 M/mm3 (4.6-6.2); White Blood Count 3.9 K/mm3 (4.4-11.0)
[2024-06-07 18:08] LABS: Erythrocyte Sedimentation Rate 2 mm/hr (0-20)
[2024-06-07 19:00] LABS: ALB/GLOB Ratio 1.3 RATIO (0.9-2.4); AST(SGOT) 16 U/L (15-37); Alanine Aminotransfer ALT/SGPT 30 U/L (16-61); Alkaline Phosphatase 63 U/L (45-117); Anion Gap 7 (5-15); BUN 13 mg/dL (7-18); BUN/Creat Ratio 13.4 RATIO (10-20); CPK Total, Creatine Kinase 206 U/L (39-308); CRP < 2.90 mg/L (0.0-3.0); Calcium,Total 8.8 mg/dL (8.5-10.1); Chloride 107 mmol/L (98-107); Creatinine, Serum 0.97 mg/dL (0.70-1.30); EST Glomerular Filtration Rate 82 mL/min (>60); Est Glom Filt Rate - Afr Amer 100 mL/min (>60); Glucose 79 mg/dL (74-106); Potassium 3.8 mmol/L (3.5-5.1); Sodium Level 141 mmol/L (136-145)
[2024-06-09 15:07] LABS: Aldolase 4.7 U/L (3.3-10.3); Deamidated Gliadin IgA 2 units (0-19); Deamidated Gliadin IgG 1 units (0-19); Endomysial Antibody IgA Negative (Negative); Immunoglobulin A 102 mg/dL (61-437); t-Transglutaminase IgA <2 U/mL (0-3)
== END | disposition home or self-care (01) ==
LOC: MTLAB 16:15
PROVIDERS: PCP Family Medicine; Referring Provider Family Medicine; Visit Provider Family Medicine
DX: M79.10 Myalgia, unspecified site (principal); K52.9 Noninfective gastroenteritis and colitis, unspecified
CPT/HCPCS: 36415; 80053; 82085; 82550; 82784; 83036; 83516; 85025; 85652; 86140; 86255

== ENCOUNTER 2024-07-12 15:55 | Emergency (ER) | payer BC, SELFPAY ==
[2024-07-12 15:56] VITALS: BP 103/91; PULSE 94; RESP 18; TEMP 36.9; O2SAT 100; BMI 27.1
[2024-07-12] MEDS: Ondansetron 4 MG/2 ML Vial IV (16:34)
[2024-07-12] MEDS: 0.9% Normal Saline (1000mL) 1,000 ML 999 ML IV (16:34)
[2024-07-12 16:40] LABS: Absolute Neutrophil Count 2.7 X10^3/uL (2.0-7.7); Basophil# 0.01 X10^3/uL; Basophil% 0.3 % (0-1); Eosinophil# 0.01 X10^3/uL; Eosinophils% 0.3 % (0-5); Hematocrit 37.4 % (40-54); Hemoglobin 12.6 g/dL (13.0-16.5); Mean Corp Hgb Conc 33.7 g/dL (32-36); Mean Corpuscular Hgb 29.1 pg (27.0-32.0); Mean Corpuscular Volume 86.4 fL (80-94); Mean Platelet Vol. 9.5 fl (6.2-12.0); Monocyte# 0.47 X10^3/uL; Monocyte% 12.9 % (0-10); NRBC Flagged by Analyzer 0 % (0-5); Neutrophil # 2.74 X10^3/uL (2.7-7.7); Neutrophil % 75.2 % (47-70); POSITIVE DIFFERENTIAL YES; Platelet Count 223 K/mm3 (150-450); RBC Distribution Width CV 13.6 % (11.6-14.6); RBC Distribution Width SD 42.6 fl (35.1-43.9); Red Blood Count 4.33 M/mm3 (4.6-6.2); White Blood Count 3.6 K/mm3 (4.4-11.0)
[2024-07-12 17:20] LABS: ALB/GLOB Ratio 1.7 RATIO (0.9-2.4); AST(SGOT) 20 U/L (<=37); Alanine Aminotransfer ALT/SGPT 22 U/L (<=46); Albumin, Serum 4.3 g/dL (3.4-4.8); Alkaline Phosphatase 58 U/L (40-129); Anion Gap 9 (5-15); BUN 10 mg/dL (4-19); BUN/Creat Ratio 9.4 RATIO (10-20); Calcium,Total 8.7 mg/dL (7.6-11.0); Carbon Dioxide 24.9 mmol/L (21.0-32.0); Chloride 105 mmol/L (98-108); Creatinine, Serum 1.09 mg/dL (0.70-1.20); EST Glomerular Filtration Rate 76 (>60); Estimated Creatinine Clearance 72.92 ml/min (50-250); Globulin 2.5 g/dL (2.2-4.2); Glucose 105 mg/dL (70-99); Potassium 3.7 mmol/L (3.3-5.1); Protein, Total 6.8 g/dL (5.9-8.4); Sodium Level 139 mmol/L (133-145); Total Bilirubin 0.45 mg/dL (0.00-1.30)
--- NOTE | 2024-07-12 17:40 | ED.VIS.GI ---
HPI HPI - GI History of Present Illness Chief Complaint: GI Bleed Informant: patient and PCP Narrative Narrative: Patient sent by PCP, he was there today for evaluation of this issue, this is day #2 of vomiting, diarrhea, both of which are dark but without any gross blood, feeling lightheaded without near-syncope or syncope, fatigued, and having chills but no known fevers. Also having some left lower abdominal pain. No history of any abdominal surgeries. He is on no anticoagulants or antiplatelets, he denies taking NSAIDs often, he has migraines but does not usually need to take NSAIDs often for them. [facility] Medical History (Updated 07/12/24 @ 20:[address] 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 Home Medications ?Medication ?Instructions ?Recorded ?Last Taken ?Type celecoxib 200 mg capsule 200 mg PO PRN 11/18/19 Unknown History fluticasone propionate 50 intranasal 11/18/19 Unknown History mcg/actuation nasal spray,suspension magnesium oxide 400 mg (241.3 mg ea PO 11/18/19 Unknown History magnesium) tablet tizanidine 4 mg tablet 4 mg PO .prn 11/21/20 Unknown History methocarbamol 500 mg tablet 500 mg PO 4X/DAY PRN PRN Muscle 08/21/21 Unknown Rx pain/spasm #40 tabs amitriptyline 50 mg tablet 50 mg PO QHS #30 tabs 05/30/24 Unknown Rx fremanezumab-vfrm 225 mg/1.5 mL 225 mg (1.5 mL) subcut QMONTH #1.5 05/30/24 Unknown Rx subcutaneous syringe (Ajovy mL Syringe) rizatriptan 10 mg tablet 10 mg PO .COMPLEX migraine 05/30/24 Unknown Rx headache #9 tabs ondansetron 8 mg disintegrating 8 mg PO Q8H PRN nausea and 07/12/24 Unknown Rx tablet vomiting #20 tabs Allergy/AdvReac Type Severity Reaction Status Date / Time No Known Allergies Allergy Verified 05/30/24 08:03 Family History Mother Diabetes Surgical History History of rotator cuff surgery Social History Smoking Status: Never smoker ROS ROS ED Constitutional Constitutional ED: Reports chills and fatigue; Denies fever(s) Eyes Eyes: Denies change in vision or diplopia ENT ENT ED: Denies rhinorrhea or sore throat Cardiovascular Cardiovascular: Reports lightheadedness; Denies chest pain, palpitations or syncope Respiratory/Chest Respiratory/Chest: Denies cough or dyspnea Gastrointestinal Gastrointestinal: Reports abdominal pain, diarrhea, nausea and vomiting; Denies hematemesis or hematochezia Genitourinary Genitourinary ED: Denies dysuria or hematuria Musculoskeletal Musculoskeletal: Denies back pain or neck pain Integumentary Denies abscess or rash Neurologic Neurologic: Denies headache(s), paresthesias or weakness Psychiatric Psychiatric: Denies anxiety or suicidal thoughts EXAM Physical Exam Const Vital Signs: 07/12/24 15:56 07/12/24 18:14 Temperature 98.4 F 98.4 F Temperature Source Oral Oral Pulse Rate 94 82 Respiratory Rate 18 18 Blood Pressure 103/91 H 101/80 Blood Pressure Mean 95 87 Pulse Ox 100 100 Oxygen Delivery Method Room Air Room Air Positive well nourished and well developed Constitutional Narrative: Well-appearing General Appearance ED: well developed and NAD HEENT Reports moist mucous membranes normocephalic and atraumatic Eyes PERRL and EOMs intact bilaterally Neck full ROM and supple Resp normal respiratory effort and clear to auscultation bilaterally Cardio regular rate, regular rhythm and no murmurs Rate: Negative for tachycardic GI non-distended GI Narrative: Mild tenderness left lower quadrant no guarding or rebound otherwise benign abdomen. No pulsatile mass. Auscultation: normoactive bowel sounds Palpation: soft Narrative: Rectal nontender, Hemoccult negative stool no melena or bright red blood. Back/Spine no CVA tenderness General Back: other FROM Extremity normal to inspection General Extremety ED: Negative for edema, pulses abnormal or tenderness General Extremity: Negative for edema or pulses abnormal Neuro oriented x3, CN's II-XII intact bilaterally and no sensory deficits noted Sensorium / Orientation: awake and alert Motor Exam: strength 5/5 throughout Skin no rashes or lesions noted and no wounds MDM MDM MDM Narrative Medical decision making narrative: Patient blood counts are good and stable compared with his prior. He does not have an elevated BUN to suggest acute upper GI bleed, and his Hemoccult is negative, arguing against this as well. He does not have a leukocytosis rather his white blood count is on the low side. Urine is unremarkable except for a trace amount of blood but I think this is less likely to be a stone although it is in the differential as is diverticulitis. Also gastroenteritis which there has been a high prevalence of. Therefore I sent him for CT given his left lower quadrant tenderness, I reviewed the images and report which I agree with. It is negative for diverticulitis or stone. It shows some dilated small bowel loops, which according to radiology could be consistent with enteritis and I believe that is the issue here, gastroenteritis. In the meantime the patient was given IV fluids, Zofran, he is doing much better and tolerating oral fluids. His vital signs are normal I do not think he needs to be admitted to the hospital for this, he is comfortable going home with a prescription for Zofran. On further discussion, significant other just had gastroenteritis the prior week that lasted 3 days or so, and this lends itself to this patient's infection likely being viral. Lab Data Attestation: I reviewed the patient's lab results. Labs: Laboratory Results - last 24 hr 07/12/24 07/12/24 16:30 18:00 WBC 3.6 L RBC 4.33 L Hgb 12.6 L Hct 37.4 L MCV 86.4 MCH 29.1 MCHC 33.7 RDW Std Deviation 42.6 RDW Coeff of Criselda 13.6 Plt Count 223 MPV 9.5 Immature Gran % (Auto) 0.300 Neut % (Auto) 75.2 H Lymph % (Auto) 11.0 L [place] % (Auto) 12.9 H Eos % (Auto) 0.3 Baso % (Auto) 0.3 Absolute Neuts (auto) 2.7 Absolute Lymphs (auto) 0.40 L Nucleated RBC % 0 Sodium 139 Potassium 3.7 Chloride 105 Carbon Dioxide 24.9 Anion Gap 9 BUN 10 Creatinine 1.09 Estim Creat Clear Calc 72.92 Est GFR (MDRD) Non-Af 76 BUN/Creatinine Ratio 9.4 L Glucose 105 H Calcium 8.7 Total Bilirubin 0.45 AST 20 ALT 22 Alkaline Phosphatase 58 Total Protein 6.8 Albumin 4.3 Globulin 2.5 Albumin/Globulin Ratio 1.7 Urine Color Yellow Urine Clarity Sl. Cloudy Urine pH 6.0 Ur Specific [place] 1.010 Urine Protein 15 H Urine Glucose (UA) Normal Urine Ketones Negative Urine Occult Blood 10 H Urine Nitrite Negative Urine Bilirubin Negative Urine Urobilinogen Normal Ur Leukocyte Esterase Negative Urine RBC 0 SEEN Urine WBC 0 SEEN Ur Squamous Epith Cells 0 SEEN Urine Bacteria 0 SEEN Urine Mucus 0 SEEN Blood Type B POSITIVE Antibody Screen NEGATIVE Radiography Diagnostic Testing: Clinical Impression(s) from Imaging Studies Abdomen/Pelvis CT 07/12/24 17:50 IMPRESSION: Short segment proximal small bowel in the left mid abdomen with possible mild wall thickening axial 65 and coronal 40, possible enteritis, nonspecific. No associated mesenteric stranding or interloop edema/fluid. Basilar atelectasis. One or more dose reduction techniques were used (e.g., Automated exposure control, adjustment of the mA and/or kV according to patient size, use of iterative reconstruction technique). Reading Location: [id number] Discharge Plan Triage Chief Complaint: GI Bleed ED Provider: Ramez Khan Dx/Rx/DC Orders Clinical Impression: Viral gastroenteritis Instructions: Viral Gastroenteritis Prescriptions: New ondansetron 8 mg tablet,disintegrating 8 mg PO Q8H PRN (Reason: nausea and vomiting) Qty: 20 0RF Continued magnesium oxide 400 mg (241.3 mg magnesium) tablet PO Patient Comments: Take one tablet twice daily. fluticasone propionate 50 mcg/actuation spray,suspension INTRANASAL celecoxib 200 mg capsule 200 mg PO PRN Patient Comments: take 1 capsule by mouth once daily tizanidine 4 mg tablet 4 mg PO .prn Patient Comments: TAKE 1 TABLET BY MOUTH EVERY 8 HOURS NEEDED amitriptyline 50 mg tablet 50 mg PO QHS Qty: 30 9RF Ajovy Syringe 225 mg/1.5 mL syringe 225 mg subcut QMONTH Qty: 1.5 9RF rizatriptan 10 mg tablet 10 mg PO .COMPLEX Qty: 9 9RF Rx Instructions: Take 1 tablet orally every two hours as needed for headache up to three tablets per day methocarbamol 500 mg tablet 500 mg PO 4X/DAY PRN PRN (Reason: Muscle pain/spasm) Qty: 40 0RF Discontinued ondansetron HCl 4 mg tablet 4 mg PO TID PRN (Reason: nausea and vomiting) Qty: 90 5RF Primary Care Provider: Juan Manuel Hernandez Referrals: Juan Manuel Hernandez MD [Primary Care Provider] - 3-5 Days if not improving Print Language: Kittitian Disposition Disposition: Home, Self Care
--- NOTE | 2024-07-12 17:50 | CT_ITS ---
PROCEDURE: ABDOMEN/PELVIS W IV CONT ONLY REASON FOR EXAM: LLQ PAIN TECHNIQUE: CT of the abdomen and pelvis with contrast with coronal and sagittal reformatted images 3D reconstructions. IV CONTRAST: 99 cc [id number] COMPARISON: None. FINDINGS: Basilar atelectasis. The liver, gallbladder, adrenal glands, kidneys, pancreas and spleen appear within limits. A few nonenlarged syed hepatis nodes with calcification may be sequela of previous granulomatous disease. Abdominal aorta within limits. No adenopathy identified. No bowel dilation or free air. Normal caliber appendix without secondary signs. No diverticulosis or diverticulitis. Short segment proximal small bowel in the left mid abdomen with possible mild wall thickening axial 65 and coronal 40, possible enteritis, nonspecific. No associated mesenteric stranding or interloop edema/fluid. The bladder appears within limits. Prostate appears within limits. No free fluid. Visualized osseous structures appear within limits. CT/Abdomen/Pelvis W IV Cont ONLY IMPRESSION: Short segment proximal small bowel in the left mid abdomen with possible mild w all thickening axial 65 and coronal 40, possible enteritis, nonspecific. No associated mesenteric stranding or interloop edema/f luid. Basilar atelectasis. One or more dose reduction techniques were used (e.g., Automated exposure contr ol, adjustment of the mA and/or kV according to patient size, use of iterative reconstruction technique). Reading Location: [id number]
[2024-07-12 18:14] VITALS: BP 101/80; PULSE 82; RESP 18; TEMP 36.9; O2SAT 100
[2024-07-12 18:21] LABS: Bacteria 0 SEEN /hpf (None Seen); Mucous, Urine 0 SEEN /hpf (<or=2+); Squamous Epithelial Cells - UA 0 SEEN /hpf (0-5); White Blood Cells 0 SEEN /hpf (0-5)
[2024-07-12 18:38] LABS: Color, Urine Yellow (Yellow); Glucose, Dipstick Normal (Normal); Ketone-Dipstick Negative (Negative); Leukocyte Esterase-Dipstick Negative /ul (Negative); Nitrite-Dipstick Negative (Negative); Occult Blood-Urine 10 /ul (Negative); Protein-Dipstick 15 mg/dl (Negative); Urine Bilirubin Dipstick Negative (Negative); Urine Clarity Sl. Cloudy (Clear); Urine Urobilinogen Normal (Normal)
[2024-07-12 18:49] LABS: Red Blood Cells-Urine 0 SEEN /hpf (0-5)
[2024-07-12 20:18] VITALS: BP 108/74; PULSE 79; RESP 18; TEMP 36.6; O2SAT 97
== END 2024-07-12 20:23 | disposition home or self-care (01) ==
PROVIDERS: Emergency Provider Emergency Medicine; PCP Family Medicine; Visit Provider Emergency Medicine
DX: A08.4 Viral intestinal infection, unspecified (principal)
CPT/HCPCS: 74177; 80053; 81001; 82274; 85025; 86850; 86900; 86901; 96361; 96374; 99282; Q9967; A4216; J2405

== ENCOUNTER → 2024-12-01 | Outpatient (CLI) | payer BC, SELFPAY ==
[2024-12-06 00:07] LABS: Ash, White <0.10 kU/L (Class 0); Black Walnut <0.10 kU/L (Class 0); Cat Hair / Dander,Stand <0.10 kU/L (Class 0); Cedar, Mountain <0.10 kU/L (Class 0); Cockroach, American <0.10 kU/L (Class 0); Dog Epithelia <0.10 kU/L (Class 0); Egg, Whole <0.10 kU/L (Class 0); Elm, American White <0.10 kU/L (Class 0); Mulberry, White <0.10 kU/L (Class 0); Mussels <0.10 kU/L (Class 0); Oak, White <0.10 kU/L (Class 0); Pigweed, Rough <0.10 kU/L (Class 0); Ragweed, Short/Common <0.10 kU/L (Class 0); Sycamore, American <0.10 kU/L (Class 0)
== END | disposition home or self-care (01) ==
LOC: MFPLAB 11:00
PROVIDERS: PCP Family Medicine; Referring Provider Family Medicine; Visit Provider Family Medicine
DX: J30.2 Other seasonal allergic rhinitis (principal)
CPT/HCPCS: 36415; 82785; 86003; 86005

== ENCOUNTER → 2025-03-15 | Outpatient (CLI) | payer BC, SELFPAY ==
--- NOTE | 2025-03-15 17:03 | RAD_ITS ---
PROCEDURE: SHOULDER MIN 2 VIEWS 03/15/2025 REASON FOR EXAM: PAIN IN RIGHT SHOULDER TECHNIQUE: Procedure Code: RADSH Modality: DX Procedure: SHOULDER MIN 2 VIEWS Laterality: Right COMPARISON: 11/18/2019. FINDINGS: No evidence acute fracture or dislocation. Mild acromioclavicular and glenohumeral degenerative changes. Right lung apex is clear. RAD/Shoulder min 2 Views IMPRESSION: Right shoulder osteoarthrosis. Reading Location: [id number]
== END | disposition home or self-care (01) ==
LOC: MTRAD 17:00
PROVIDERS: PCP Family Medicine
DX: M25.511 Pain in right shoulder (principal)
CPT/HCPCS: 73030